=== PATIENT | female | born 1945 | race Caucasian/White ===

== ENCOUNTER 2017-07-24 15:25 | Emergency (ER) | payer MEDICARE, OTHER, SELFPAY ==
[2017-07-24 15:41] VITALS: BP 180/73; PULSE 87; RESP 24; TEMP 36.7; O2SAT 96; BMI 27.4
[2017-07-24 15:45] VITALS: BMI 28.7
--- NOTE | 2017-07-24 15:47 | CT_ITS ---
CT cervical spine wo con CLINICAL INDICATION: Neck pain following injury ITS.REASON: fall ORDERING PHYSICIAN: PATIENT AGE: 72 years COMPARISON: None FINDINGS: Normal alignment. No fracture or dislocation. No lytic or blastic change. Multilevel cervical spondylosis is present. C2-C3: Mild uncovertebral hypertrophy. C3-C4: Uncovertebral hypertrophy with bilateral foraminal narrowing. C4-C5: Degenerative disc disease with Left-sided uncovertebral hypertrophy with left-sided foraminal narrowing. C5-C6: Degenerative disc disease. Lung apices are clear. No prevertebral soft tissue swelling. Fluid-filled upper esophagus nonspecific and may be seen with reflux or distal esophageal obstruction IMPRESSION: 1. Cervical spondylosis. Multilevel degenerative changes. 2. No acute fracture or dislocation. 3. Fluid-filled upper thoracic esophagus
--- NOTE | 2017-07-24 15:48 | XR_ITS ---
XR hand RT min 3V HISTORY: Post may pain ITS.REASON: fall ORDERING PHYSICIAN: Morgan Pham MD PATIENT AGE: 72 years COMPARISON: None FINDINGS: No fracture or dislocation. No lytic or blastic change. There is normal mineralization.. There is mild osteoarthritic change of the second DIP joint. IMPRESSION: 1. No acute fracture. 2. Mild osteoarthritis of the second DIP
--- NOTE | 2017-07-24 16:09 | CT_ITS ---
CT head/brain wo con HISTORY: Headache, pain, right frontal contusion with bruising and abrasion following injury ITS.REASON: FALL ORDERING PHYSICIAN: PATIENT AGE: 72 years COMPARISON: None TECHNIQUE: Axial images obtained without contrast. Brain and bone windows reviewed. FINDINGS: No midline shift, mass effect, intracranial hemorrhage, hydrocephalus, or extra-axial fluid collection is evident. There are involutional changes of age with mild cortical volume loss. The calvarium has an unremarkable appearance. No mastoid effusion. No sinus air-fluid levels.. IMPRESSION: No acute intracranial findings.
--- NOTE | 2017-07-24 17:56 | HMH.EDGENADL ---
ED Disposition Clinical Impression: Contusion Qualifiers: Encounter type: initial encounter Contusion area: hand Laterality: right Qualified Code(s): S60.221A - Contusion of right hand, initial encounter Disposition: Home, Self-Care Condition on Discharge: Good Instructions: DI for Closed Head Injury Additional Instructions: Please apply an ice pack to the affected areas, take Tylenol as needed for pain, follow-up with your family physician if not better. Referrals: Jenniffer Murdock APRN [Primary Care Provider] - Time of Disposition: 17:57 - Critical Care Critical Care Time: No Attestation: On 07/24/17, the high probability of a clinically significant, sudden or life threatening deterioration of the following system(s) required my full and direct attention, intervention and personal management. The time I documented below is in addition to time spent performing reported procedures but includes the following listed in this critical care notation. Medical Decision Making - Medical Records Medical records reviewed: Yes: I reviewed the patient's medical records. Vital Signs: 07/24/17 15:41 07/24/17 18:27 Temperature 98.1 F 98.0 F Temperature Source Oral Oral Pulse Rate 87 Pulse Rate [Right Radial] 87 Respiratory Rate 24 20 Blood Pressure 160/78 Blood Pressure [Right Arm] 180/73 Blood Pressure Mean [Right Arm] 108 Blood Pressure Source Automatic Cuff Blood Pressure Source [Right Arm] Manual Cuff/ Doppler Blood Pressure Position Sitting Blood Pressure Position [Right Arm] Sitting 02 Sat by Pulse Oximetry 96 Oxygen Delivery Method Room Air Room Air Orders (Tests/Meds): ORDERS Category Date Time Status CT head request [CT Request head] Stat Cat Scan 07/24/17 15:46 Taken - Radiology Data #1 Image(s): Forearm Image Reviewed: Yes I reviewed the patient's radiology results Preliminary Findings: Normal/NAD - CT Data CT Scan: Head Time Received: 17:[address] Reviewed: Yes: I have reviewed the patient's CT results Preliminary Findings: Normal/NAD Findings Narrative: CT scan # 2- C spine - negative - Heladio Inquiry Pt receiving controlled substance: No - Reevaluation(s) Time: 17:45 Reevaluation #1: Patient remains medically stable, in no acute distress. Advised patient to alternate Motrin with Tylenol for pain control, follow-up with PCP if not better per discharge instructions. General Adult HPI - General Chief complaint: Head Injury Stated complaint: AO 07/24/16 Fell, left hip pain, CALVIN Mode of Arrival: Ambulatory Limitations: No Limitations - History of Present Illness HPI narrative: This is a 72-year-old lady that fell after slipping on ice injuring her right hand, and hitting her head. She was briefly days, complaints with neck pain as well. Accident took place 2-3 hours prior to arrival to the emergency room. Patient denies any nausea, vomiting, blurred vision, seizure-like activity. MD complaint: Head and neck pain. Onset (ago): hour(s) (2) Location: head Radiation: non-radiation Severity: moderate Severity scale (1-10): 2 Quality: aching Consistency: intermittent Relieving factors: none Exacerbating factors: movement Associated symptoms: headaches Treatments prior to arrival: none - Related Data Home Medications Medication Instructions Recorded Confirmed Aspirin [Aspirin 81mg EC Tab] 81 mg PO DAILY 07/24/17 07/24/17 Allergies Allergy/AdvReac Type Severity Reaction Status Date / Time propoxyphene [From DARVON] Allergy Unknown Verified 07/24/17 15:57 Sulfa (Sulfonamide Allergy Unknown Verified 07/24/17 15:57 Antibiotics) [SULFA (SULFONAMIDE ANTIBIOTICS)] [facility] History I have reviewed the patient's past medical history: Yes Medical History: Reports:: Diabetes Mellitus Type 2 Laterality Cases: Left: Mastectomy - *Social History Alcohol Intake: never - Psychiatric History Expresses thoughts of harmin
[2017-07-24 18:27] VITALS: BP 160/78; PULSE 87; RESP 20; TEMP 36.7; O2SAT 97
== END 2017-07-24 18:28 | disposition home or self-care (01) ==
LOC: UTC 16:32 → ER 16:34
PROVIDERS: Emergency Provider Emergency Medicine; Family Provider Internal Medicine Adolescent Medicine; PCP Nurse Practitioner Family
DX: S60.221A Contusion of right hand, initial encounter (principal); S09.90XA Unspecified injury of head, initial encounter; W00.0XXA Fall on same level due to ice and snow, initial encounter
CPT/HCPCS: 70450; 72125; 73130; 99291

== ENCOUNTER 2017-08-03 14:34 | Emergency (ER) | payer MEDICARE, OTHER, SELFPAY ==
[2017-08-03 16:37] VITALS: BP 107/47; PULSE 60; RESP 18; TEMP 36.3; O2SAT 99; BMI 27.4
[2017-08-03 16:44] LABS: Apearance,Urine Clear (Clear); Color,Urine Yellow (Yellow); Glucose,Urine (UA) Negative (Negative); Ketones,Urine Negative (Negative); PH,Urine 5.5 (5.0-8.5); Protein,Urine Negative (Negative); Specific Gravity, Urine 1.015 (1.005-1.030)
[2017-08-03 16:45] LABS: Bilirubin,Urine Negative (Negative); Blood, Urine Negative (Negative); UTC Leukocyte Esterase,Urine 1+ (Negative); UTC Nitrate,Urine Negative (Negative); Urobilinogen,Urine 0.2 EU/dl (0.2)
--- NOTE | 2017-08-03 17:25 | HMH.EDUTC ---
[facility] Clinical Impression: Dysuria Disposition: Home, Self-Care Condition on Discharge: Good Instructions: DI for Dysuria -- Adult Additional Instructions: * increase fluids, Water and NOT soda or tea * No antibiotic today. Will wait for culture results but if you get worse while waiting, be sure to follow up. * pyridium as needed. Remember this will turn your urine ORANGE, this is normal but will stain whatever it gets on. this includes tears and contacts. Try not to wear contacts due to risk of staining orange. * call [phone] on Sunday to see if results ready. if not ready, call Sunday. If bacteria, we will start antibiotic Prescriptions: Phenazopyridine HCl [Pyridium 200mg Tablet] 200 mg PO TID PRN #9 tab PRN Reason: Dysuria Referrals: Jenniffer Murdock APRN [Primary Care Provider] - (This weekend return to [facility] for new or worsening symptoms. Call Sunday for urine culture results but if not ready, call Sunday. You will need antibiotic if bacteria present) Time of Disposition: 17:37 Medical Decision Making Vital Signs: 08/03/17 16:37 Temperature 97.4 F L Temperature Source Temporal Artery Scan Pulse Rate [Right Brachial] 60 Respiratory Rate 18 Blood Pressure [Right Arm] 107/47 Blood Pressure Mean [Right Arm] 67 Blood Pressure Source [Right Arm] Automatic Cuff Blood Pressure Position [Right Arm] Sitting 02 Sat by Pulse Oximetry 99 Oxygen Delivery Method Room Air - Lab Data Lab results reviewed: Yes: I reviewed the patient's lab results. Lab Results 08/03/17 16:42: Urine Color Yellow, Urine Appearance Clear, Urine pH 5.5, Ur Specific [place] 1.015, Urine Protein Negative, Urine Glucose (UA) Negative, Urine Ketones Negative, Urine Blood Negative, Urine Nitrate Negative, Urine Bilirubin Negative, Urine Urobilinogen 0.2, Ur Leukocyte Esterase 1+ A Orders (Tests/Meds): ORDERS Category Date Time Status Urine Culture Stat Micro 08/03/17 17:33 Ordered - Heladio Inquiry Pt receiving controlled substance: No [facility] [place] - General Stated complaint: vaginal burning Time Seen by Provider: 08/03/17 17:20 Mode of Arrival: Ambulatory Source of Information: Patient Limitations: No Limitations Description of Symptoms (Recalled from Triage Doc. by RN): BURNING WITH URINATION HEENT Symptoms (Recalled from RN notes): No Resp Symptoms (Recalled from RN notes): No Skin Symptoms (Recalled from RN notes): No MS Symptoms (Recalled from RN notes): No Functional Status (Recalled from RN notes): N/A - History of Present Illness Provider Complaint: c/o burning with urination today. Hx of UTIs but last one over a year ago. No treatment before arrival. Reports trying to see PCP but no openings today. - Related Data Home Medications Medication Instructions Recorded Confirmed Aspirin [Aspirin 81mg EC Tab] 81 mg PO DAILY 07/24/17 07/24/17 Previous Rx's Medication Instructions Recorded Phenazopyridine HCl [Pyridium 200 mg PO TID PRN #9 tab 08/03/17 200mg Tablet] Allergies Allergy/AdvReac Type Severity Reaction Status Date / Time propoxyphene [From DARVON] Allergy Unknown Verified 07/24/17 15:57 Sulfa (Sulfonamide Allergy Unknown Verified 07/24/17 15:57 Antibiotics) [SULFA (SULFONAMIDE ANTIBIOTICS)] - Worker's Comp Is this a Worker's Comp case?: No [facility] History I have reviewed the patient's past medical history: Yes Medical History: Reports:: Depression, Diabetes Mellitus Type 2, Gastroesophageal Reflux Disease(GERD), Hyperlipidemia, Hypertension Denies:: Cancer, Diabetes Mellitus Type 1, MRSA Other Medical History: Reports: Other (allergies) Laterality Cases: Left: Mastectomy Amputation: No - *Social History Smoking Status: Never smoker Alcohol Intake: never - Psychiatric History Expresses thoughts of harming self/others: None Suicide Plan Description: No Plan ROS Obtained: Yes Systems reviewed as appropriate & no additional complaints
--- NOTE | 2017-08-03 17:33 | ED_ITS ---
[facility] [place] Clinical Impression: Dysuria Disposition: Home, Self-Care Condition on Discharge: Good Instructions: DI for Dysuria -- Adult Additional Instructions: * increase fluids, Water and NOT soda or tea * No antibiotic today. Will wait for culture results but if you get worse while waiting, be sure to follow up. * pyridium as needed. Remember this will turn your urine ORANGE, this is normal but will stain whatever it gets on. this includes tears and contacts. Try not to wear contacts due to risk of staining orange. * call [phone] on Sunday to see if results ready. if not ready, call Sunday. If bacteria, we will start antibiotic Prescriptions: Phenazopyridine HCl [Pyridium 200mg Tablet] 200 mg PO TID PRN #9 tab PRN Reason: Dysuria Referrals: Jenniffer Murdock APRN [Primary Care Provider] - (This weekend return to [facility] for new or worsening symptoms. Call Sunday for urine culture results but if not ready, call Sunday. You will need antibiotic if bacteria present) Time of Disposition: 17:37 Medical Decision Making Vital Signs: 08/03/17 16:37 Temperature 97.4 F L Temperature Source Temporal Artery Scan Pulse Rate [Right Brachial] 60 Respiratory Rate 18 Blood Pressure [Right Arm] 107/47 Blood Pressure Mean [Right Arm] 67 Blood Pressure Source [Right Arm] Automatic Cuff Blood Pressure Position [Right Arm] Sitting 02 Sat by Pulse Oximetry 99 Oxygen Delivery Method Room Air - Lab Data Lab results reviewed: Yes: I reviewed the patient's lab results. Lab Results 08/03/17 16:42: Urine Color Yellow, Urine Appearance Clear, Urine pH 5.5, Ur Specific [place] 1.015, Urine Protein Negative, Urine Glucose (UA) Negative, Urine Ketones Negative, Urine Blood Negative, Urine Nitrate Negative, Urine Bilirubin Negative, Urine Urobilinogen 0.2, Ur Leukocyte Esterase 1+ A Orders (Tests/Meds): ORDERS Category Date Time Status Urine Culture Stat Micro 08/03/17 17:33 Ordered - Heladio Inquiry Pt receiving controlled substance: No [facility] [place] - General Stated complaint: vaginal burning Time Seen by Provider: 08/03/17 17:20 Mode of Arrival: Ambulatory Source of Information: Patient Limitations: No Limitations Description of Symptoms (Recalled from Triage Doc. by RN): BURNING WITH URINATION HEENT Symptoms (Recalled from RN notes): No Resp Symptoms (Recalled from RN notes): No Skin Symptoms (Recalled from RN notes): No MS Symptoms (Recalled from RN notes): No Functional Status (Recalled from RN notes): N/A - History of Present Illness Provider Complaint: c/o burning with urination today. Hx of UTIs but last one over a year ago. No treatment before arrival. Reports trying to see PCP but no openings today. - Related Data Home Medications Medication Instructions Recorded Confirmed Aspirin [Aspirin 81mg EC Tab] 81 mg PO DAILY 07/24/17 07/24/17 Previous Rx's Medication Instructions Recorded Phenazopyridine HCl [Pyridium 200 mg PO TID PRN #9 tab 08/03/17 200mg Tablet] Allergies Allergy/AdvReac Type Severity Reaction Status Date / Time propoxyphene [From DARVON] Allergy Unknown Verified 07/24/17 15:57 Sulfa (Sulfonamide Allergy Unknown Verified 07/24/17 15:57 Antibiotics) [SULFA (SULFONAMIDE ANTIBIOTICS)] - W
[2017-08-03 17:49] VITALS: BP 107/47; PULSE 60; RESP 18; TEMP 36.3; O2SAT 99
== END 2017-08-03 17:50 | disposition home or self-care (01) ==
PROVIDERS: Emergency Provider Nurse Practitioner Family; Family Provider Internal Medicine Adolescent Medicine; PCP Nurse Practitioner Family
DX: R30.0 Dysuria (principal); F32.9 Major depressive disorder, single episode, unspecified; E11.9 Type 2 diabetes mellitus without complications; E78.5 Hyperlipidemia, unspecified; I10 Essential (primary) hypertension; Z88.2 Allergy status to sulfonamides; Z79.82 Long term (current) use of aspirin
CPT/HCPCS: G0463; 81003; 87086; 87088; 87186; 99202

== ENCOUNTER → 2017-11-07 12:02 | Outpatient (CLI) | payer MEDICARE, OTHER, SELFPAY ==
[2017-11-07 12:24] LABS: Blood Urea Nitrogen 16 mg/dL (7-18); Creatinine,Serum 0.74 mg/dL (0.55-1.02); Estimated Glomerular Filt Rate 77 ml/min (>60); GFR (African American) 93 ML/MIN (>60)
--- NOTE | 2017-11-07 13:13 | CT_ITS ---
CT abdomen pelvis w con CLINICAL INDICATION: Persistent left flank pain ITS.REASON: LT FLANK PAIN ORDERING PHYSICIAN: Don Conde MD PATIENT AGE: 72 years COMPARISON: 10/22/2017 TECHNIQUE: Axial images obtained with sagittal and coronal reformats. All CT scans at the facility use one or more dose reduction, viz: automated exposure control; ma/kV adjustment per patient size (including targeted exams where dose is matched to indication; i.e. head); or iterative reconstruction technique. PROCEDURE: Oral Contrast: None IV Contrast: 75 mL's of Isovue-370. FINDINGS: No acute finding in the lower chest. Left-sided breast prosthesis is present. There is a subtle isodensity in the central aspect of the hepatic dome measuring 5 mm too small to categorize. There is an additional 12 mm isodensity in the central aspect of the liver which may be due to small cyst. Remaining liver has an unremarkable appearance. No radio opaque gallstones. The spleen and adrenal glands have an unremarkable.. Isodense lesion once again noted involving the uncinate process of the pancreas at 14 mm not significant change. No renal or ureteral calculi are evident. There is a 1.5 cm isodensity in the upper pole the right kidney consistent with a small cyst. No hydronephrosis. No ureteral dilatation. The urinary bladder has an unremarkable appearance. There are postsurgical changes of the cecum with ileocecal anastomosis which is patent. No intestinal obstruction or free air. There has been prior hysterectomy. No pelvic mass, inflammatory change, or abnormal fluid collection evident. There is moderate wedging of the L1 vertebral body is chronic with kyphosis at the thoracolumbar junction. No aneurysm. IMPRESSION: 1. No acute finding. No ureteral or renal calculi. No hydronephrosis or ureteral dilatation. 2. No change isodense lesion of the pancreatic head as previously described. Pancreatic cyst, intraductal papillary mucinous neoplasm, serous cystadenoma or simple pancreatic cyst considered in the differential diagnosis
== END ==
PROVIDERS: Visit Provider Internal Medicine Adolescent Medicine
DX: R10.9 Unspecified abdominal pain (principal)
CPT/HCPCS: 36415; 74177; 82565; 84520; Q9967

== ENCOUNTER → 2018-02-01 11:45 | Outpatient (CLI) | payer MEDICARE, OTHER, SELFPAY ==
--- NOTE | 2018-02-01 11:48 | NVE_ITS ---
Venous Exam Indications: 782.3 Edema. IMPRESSIONS 1. There is no evidence of significant Reflux. 2. No evidence of deep or superficial vein thrombosis involving the left lower extremity Left lower extremity venous duplex evaluation. Doppler flow study including spectral analysis, color and donato scale imaging. Location: Vascular laboratory. Patient status: Outpatient. CRITICAL FINDINGS - Reported to: CARTER - Read back and verified. - 02/01/18 - 1210 - NONE Tables: Venous flow and imaging: + +-------+ + Location Overall Flow properties + +-------+ + Left common femoral Patent Normal phasicity; spontaneous; normal augmentation; compressible + +-------+ + Left saphenofemoral junction Patent Compressible + +-------+ + Left profunda femoral Patent Compressible + +-------+ + Left femoral Patent Normal phasicity; spontaneous; normal augmentation; compressible + +-------+ + Left greater saphenous Patent Normal phasicity; spontaneous; normal augmentation; compressible + +-------+ + Left popliteal Patent Normal phasicity; spontaneous; normal augmentation; compressible + +-------+ + Left posterior tibial Patent Compressible + +-------+ + Left peroneal Patent Compressible + +-------+ + Left gastrocnemius Patent Compressible + +-------+ + Left soleal Patent Compressible + +-------+ + (Report amended ) Electronically signed by: Hamilton Lazcano [id number]
== END ==
PROVIDERS: PCP Internal Medicine Adolescent Medicine; Visit Provider Internal Medicine Adolescent Medicine
DX: M79.89 Other specified soft tissue disorders (principal)
CPT/HCPCS: 93971

== ENCOUNTER 2019-02-02 17:04 | Observation (INO) ==
[2019-02-02 17:18] LABS: Microscopic, Urine URINE MICROSCOPIC (MICROSCOPIC)
--- NOTE | 2019-02-02 17:27 | Emergency Department Note ---
ED Disposition Clinical Impression: Agitation Dementia Qualifiers: Dementia type: unspecified type Dementia behavioral disturbance: with behavioral disturbance Qualified Code(s): F03.91 - Unspecified dementia with behavioral disturbance Disposition: Admitted as Observation Condition on Discharge: Fair - Critical Care Critical Care Time: No Attestation: On 02/02/19, the high probability of a clinically significant, sudden or life threatening deterioration of the following system(s) required my full and direct attention, intervention and personal management. The time I documented below is in addition to time spent performing reported procedures but includes the following listed in this critical care notation. Medical Decision Making - Heladio Inquiry Pt receiving controlled substance: No Vital Signs: 02/02/19 17:15 02/02/19 17:35 02/02/19 17:54 Temperature 99.5 F Temperature Source Oral Pulse Rate [Right Radial] 86 75 Respiratory Rate 18 17 Blood Pressure [Right Arm] 208/98 H 208/91 H 195/86 H Blood Pressure Mean [Right Arm] 134 130 122 Blood Pressure Source [Right Arm] Automatic Cuff Automatic Cuff Automatic Cuff Blood Pressure Position [Right Arm] Sitting Sitting Sitting 02 Sat by Pulse Oximetry 97 97 Oxygen Delivery Method Room Air Room Air 02/02/19 18:30 02/02/19 19:00 02/02/19 19:45 Temperature Temperature Source Pulse Rate [Right Radial] 71 80 82 Respiratory Rate 17 18 20 Blood Pressure [Right Arm] 189/89 H 205/93 H 185/90 H Blood Pressure Mean [Right Arm] 122 130 121 Blood Pressure Source [Right Arm] Automatic Cuff Automatic Cuff Blood Pressure Position [Right Arm] Sitting Sitting Sitting 02 Sat by Pulse Oximetry 96 97 96 Oxygen Delivery Method Room Air Room Air Room Air - Lab Data Lab Results 02/02/19 17:12: Urine Color Yellow, Urine Appearance Clear, Urine pH 7.0, Ur Specific [place] <= 1.005, Urine Protein Negative, Urine Glucose (UA) Negative, Urine Ketones Negative, Urine Blood Negative, Urine Nitrate Negative, Urine Bilirubin Negative, Urine Urobilinogen 0.2, Ur Leukocyte Esterase Negative, Urine WBC Occasional, Amorphous Sediment Trace 02/02/19 18:02: WBC 5.6, RBC 4.06 L, Hgb 10.7 L, Hct 34.8 L, MCV 85.8, MCH 26.5 L, MCHC 30.8 L, RDW 15.3, Plt Count 251, MPV 7.9, Neut % (Auto) 64.9, Lymph % (Auto) 27.1, [place] % (Auto) 5.6, Eos % (Auto) 1.9, Baso % (Auto) 0.5, Neut # (Auto) 3.6, Lymph # (Auto) 1.5, [place] # (Auto) 0.3, Eos # (Auto) 0.1, Baso # (Auto) 0.0 02/02/19 18:02: Sodium 140, Potassium 4.0, Chloride 103, Carbon Dioxide 31, Anion Gap 10.0, BUN 17, Creatinine 0.76, Estimated Creat Clear 44, Estimated GFR 74, Est GFR ( Amer) 90, Glucose 75, Calcium 9.2, Total Bilirubin 0.4, AST 14 L, ALT 29, Alkaline Phosphatase 80, Troponin I < 0.02, Total Protein 7.5, [place] umin 3.8, Globulin 3.7 H, Albumin/Globulin Ratio 1.0 L Result diagrams: 02/02/19 18:02 02/02/19 18:02 Orders (Tests/Meds): ED MEDICATIONS Generic Name Dose Route Start Last Admin Trade Name Freq PRN Reason Stop Dose Admin Sodium Chloride 2 ml 02/02/19 19:08 Saline Flush 10ml Syringe IV 03/04/19 19:07 NEEDED PRN to Dilute Lorazepam inj Sodium Chloride 10 ml 02/02/19 19:08 Saline Flush 10ml Syringe IV 03/04/19 19:07 NEEDED PRN Maintain IV Site Discontinued Medications Generic Name Dose Route Start Last Admin Trade Name Freq PRN Reason Stop Dose Admin Carvedilol 12.5 mg 02/02/19 20:16 Coreg 12.5mg Tablet PO 02/02/19 20:17 ONCE ONE Lorazepam 1 mg 02/02/19 19:08 02/02/19 19:08 Ativan 2mg/Ml Vial IV 02/02/19 19:09 1 mg ONCE ONE Administration ORDERS Category Date Time Status XR chest portable Stat Exams 02/02/19 17:40 Taken - Radiology Data #1 Image(s): Chest Image Reviewed: Yes I reviewed the patient's radiology image Granulomatous disease. No acute process. - ECG Data Tracing #1 EKG interpreted by Garrison Peck MD: Rhythm: sinus Rate: 72 [place]: Left Ectopy: none Conduction: Left bundle branch block ST Segment Changes: Old anterior septal and lateral changes T Wave Changes: Old anterior septal and lateral changes Q Waves: Septal No evidence of acute ischemia or injury - Physician Consults Physician Consulted: Elton Time: 19:50 Reason -: Admission Comment/Response: Agrees to admit the patient to the hospital. We discussed the patient's clinical information, including history, exam, laboratory and rad iology results and ED course. Per hospital procedure, I will write temporary bridge inpatient orders on the patient. Specific orders requested by the admitting physician: Admit to observation and he will pursue placement in a geriatric psychiatric facility tomorrow. Ativan 1 mg IV every 6 hours as needed for agitation. Give a dose of carvedilol, her usual dosage, tonight. General Adult HPI - General Stated complaint: AMS Time Seen by Provider: 02/02/19 17:30 - History of Present Illness HPI narrative: History obtained from patient and from the emergency department nurse who is spoken with the patient's daughter. Daughter was not in the room at the time I examined the patient. The patient says she feels fine, she has no complaints. She says "my daughter is a pain in the ass, she tries to control me". Nurse reports the daughter says the patient has dementia. Has had some episodes of combativeness since her a year ago. Still lives alone, still drives. Has increased confusion for the past couple of weeks. Last week was knocking on neighbors doors and police had to be called. Today she had increased confusion and combativeness and therefore was brought to the emergency room. She is on Aricept. Daughter states that she was "terrible" with her dementia for about 6 months after her 1 year ago, but then improved for the past 4 to 5 months. However in the past 2 weeks is worsening again. Paranoid, accusing neighbors of stealing her stuff. Has had to have the police called on her twice by neighbors in the past couple of weeks. - Related Data Home Medications Medication Instructions Recorded Confirmed Aspirin [Aspirin 81mg EC Tab] 81 mg PO DAILY 07/24/17 02/02/19 Atorvastatin Calcium [Atorvastatin 80 mg PO DAILY 10/21/17 02/02/19 80mg Tab] Donepezil HCl [Aricept 10mg 10 mg PO DAILY 10/21/17 02/02/19 tablet] Escitalopram Oxalate [Lexapro] 10 mg PO DAILY 10/21/17 02/02/19 Memantine HCl 10 mg PO DAILY 10/21/17 02/02/19 Metformin HCl 500 mg PO DAILY 10/21/17 02/02/19 Primidone [Mysoline 50mg tablet] 50 mg PO DAILY 10/21/17 02/02/19 diazePAM [Valium 2mg tablet] 2 mg PO DAILYP PRN 10/21/17 02/02/19 carvedilol 12.5 mg tablet 12.5 mg PO DAILY tab 08/15/18 02/02/19 Allergies Allergy/AdvReac Type Severity Reaction Status Date / Time propoxyphene [From DARVON] Allergy Unknown Verified 01/30/19 09:49 Sulfa (Sulfonamide Allergy Unknown Verified 01/30/19 09:49 Antibiotics) [SULFA (SULFONAMIDE ANTIBIOTICS)] [facility] History - Hepatitis A Screen Attestation statement:: This patient has been screened for Hepatitis A risk factors. I have reviewed the patient's past medical history: Yes Medical History: Reports:: Cancer, Depression, Diabetes Mellitus Type 1, Gastroesophageal Reflux Disease(GERD), Hyperlipidemia, Hypertension Denies:: Diabetes Mellitus Type 2, MRSA Other Medical History: Reports: Other Laterality Cases: Other Surgeries: Yes: Colon Resection Amputation: No Fractures: No - Social History Smoking Status: Never smoker Alcohol Intake: never Alcohol Intake Frequency:: other Occupational Status: retired - Psychiatric History Pschychiatric History:: Reports:: Depression Family Hx:: Stroke, Heart Attack Comment: Mom- Seizures ROS Obtained: Yes All systems reviewed & no additional complaints - Constitutional Constitutional: Denies fever(s) - Eyes Eyes: Denies change in vision - ENT Ears, Nose, Mouth, and Throat: Denies nasal discharge, Denies sore throat - Cardiovascular Cardiovascular: Denies chest pain - Respiratory Respiratory: No cough, No dyspnea - Gastrointestinal Gastrointestingal: Denies: abdominal pain, diarrhea, vomiting - Genitourinary Female Genitourinary: Denies difficulty voiding - Neurologic Neurologic: Reports as per HPI, Denies headache(s), Denies numbness, Denies weakness Physical Exam - General General appearance: alert, in no apparent distress - Head Head exam: atraumatic, normocephalic - Eye Eye exam: Present: normal appearance, PERRL, EOMI - ENT ENT exam: Present: mucous membranes moist - Neck Neck exam: Present: normal inspection, full ROM, trachea midline. Absent: meningismus - Chest Chest inspection: Present: normal inspection, symmetric chest wall rise - Respiratory Respiratory exam: Present: normal lung sounds bilaterally. Absent: respiratory distress - Cardiovascular Cardiovascular exam: Present: regular rate, normal rhythm, normal heart sounds - Abdominal Exam Abdominal exam: Present: soft, normal bowel sounds. Absent: distention, tenderness - Extremities Exam Extremities exam: Present: normal inspection - Neurological Exam Neurological exam: Present: alert, oriented X3, CN II-XII intact. Absent: motor sensory deficit - Psychiatric Psychiatric exam: Present: normal affect, normal mood - Skin Skin exam: Present: warm, dry
[2019-02-02 17:32] LABS: Appearance,Urine CLEAR (Clear); Bilirubin,Urine Negative (Negative); Blood, Urine Negative (Negative); Color,Urine YELLOW (Yellow); Glucose,Urine (UA) Negative (Negative); Ketones,Urine Negative (Negative); Leukocyte Esterase,Urine Negative (Negative); Protein,Urine Negative (Negative); Specific Gravity, Urine <= 1.005 (1.005-1.030); Urobilinogen,Urine 0.2 EU/dl (0.2)
[2019-02-02 17:37] LABS: Amorphous Sediment,Urine Trace /lpf; WBC,Urine Occasional #/hpf (0-3)
[2019-02-02 18:15] LABS: Basophils % 0.5 % (0.1-2.0); Eosinophils # 0.1 K/mm3 (0.0-0.4); Eosinophils % 1.9 % (0.1-12.0); Hematocrit 34.8 % (37.0-47.0); Hemoglobin 10.7 g/dL (12.2-16.2); Lymphocytes # 1.5 K/mm3 (0.7-4.5); Lymphocytes % 27.1 % (10-50); Mean Corpuscular HGB Conc 30.8 g/dL (31.8-35.4); Mean Corpuscular Volume 85.8 fl (81-99); Mean Platelet Volume 7.9 fl (7.4-10.4); Monocytes # 0.3 K/mm3 (0.1-1.0); Monocytes % 5.6 % (1.7-9.3); Neutrophils # 3.6 K/mm3 (1.8-7.8); Neutrophils % 64.9 % (37.0-80.0); Platelet Count 251 K/mm3 (142-424); Red Blood Count 4.06 M/mm3 (4.20-5.40); Red Cell Distribution Width 15.3 % (11.5-17.5); White Blood Count 5.6 K/mm3 (4.8-10.8)
[2019-02-02 18:31] LABS: Alanine Aminotransferase 29 U/L (12-78); Albumin Level 3.8 gm/dL (3.4-5.0); Alkaline Phosphatase 80 U/L (46-116); Aspartate Amino Transferase 14 U/L (15-37); Bilirubin,Total 0.4 mg/dL (0.2-1.0); Blood Urea Nitrogen 17 mg/dL (7-18); Calcium 9.2 mg/dL (8.5-10.1); Carbon Dioxide 31 mmol/L (21.0-32.0); Chloride 103 mmol/L (98-107); Globulin 3.7 gm/dl (1.3-3.2); Glucose 75 mg/dL (74-106); Sodium 140 mmol/L (136-145); Total Protein,Serum 7.5 gm/dL (6.4-8.2)
--- NOTE | 2019-02-03 09:34 | Pharmacy Consult Notes ---
[facility] Pharmacy VTE Monitoring - Patient Demographics Admission date: 02/02/19 Report Date: 02/03/19 Time: 09:34 Allergies/Adverse Reactions: Patient Allergies propoxyphene [From DARVON] Allergy (Unknown, Verified 01/30/19 09:49) Sulfa (Sulfonamide Antibiotics) [SULFA (SULFONAMIDE ANTIBIOTICS)] Allergy (Unknown, Verified 01/30/19 09:49) Height: 1.57 m Weight: 56.359 kg Patient Problems: Current Active Problems Agitation (Acute) Dementia (Acute) - VTE Risk Labs: VTE Related Lab Results Hgb 10.7 g/dL (12.2-16.2) L 02/02/19 18:02 Hct 34.8 % (37.0-47.0) L 02/02/19 18:02 Plt Count 251 K/mm3 (142-424) 02/02/19 18:02 BUN 17 mg/dL (7-18) 02/02/19 18:02 Creatinine 0.76 mg/dL (0.55-1.02) 02/02/19 18:02 Estimated Creat Clear 44 mL/min (50-200) 02/02/19 18:02 VTE Score: 4 VTE Risk Level: Low Risk - Prophylaxis VTE Prophylaxis Ordered?: Yes Types of VTE Prophylaxis: TEDS Knee High Location of Applied Device: Bilateral Lower Extremeties - VTE Diagnosis Confirmed Treatment or plan recommended: Continue Current Treatment
--- NOTE | 2019-02-03 13:47 | History & Physical Report ---
*Admission Date: 02/02/19 *Chief complaint: Disorientation/agitation *History of present illness: 73-year-old white female, with long history of anxiety disorder and hypertension who was brought to the emergency department on the day of admission by her daughter. Her daughter, as noted in the ER report, reported that the patient was increasingly agitated, and was exhibiting violent behaviors and striking and hitting the daughter. In the emergency department patient was agitated, was called with intravenous of Ativan, but was also noted to have significantly elevated blood pressure. Otherwise laboratory studies and imaging studies of the head were unremarkable. She was given her regular dose of her home blood pressure [id number] resulted in normalization of her blood pressure. She became somewhat calm her, and accused her daughter of "trying to run my life." She was admitted for further observation. [facility] History I have reviewed the patient's past medical history: Yes Medical History: Reports:: Cancer (breast CA), Depression, Diabetes Mellitus Type 1, Diabetes Mellitus Type 2, Gastroesophageal Reflux Disease(GERD), Hyperlipidemia, Hypertension Denies:: MRSA *Have you ever received a pneumonia vaccine?: No *Have you received a flu vaccine this season?: Yes Other Medical History: Reports: Other Laterality Cases: Left: Mastectomy Other Surgeries: Yes: Colon Resection, Hysterectomy-Total Amputation: No Fractures: No - *Social History Educational Level: Completed High School Smoking Status: Never smoker Alcohol Intake: never Alcohol Intake Frequency:: other *Occupational Status:: retired *Travel in the last 8 weeks: None - Psychiatric History Expresses thoughts of harming self/others: None Suicide Plan Description: No Plan Pschychiatric History:: Reports:: Depression Family Hx:: Cancer, Stroke Review of Systems - Review of Systems Review of systems:: pertinent systems reviewed and negative unless documented below - Constitutional Denies anorexia, Denies body ache(s) - Eyes Denies blind spots, Denies blurry vision - ENT Denies abnormal hearing - *Cardiovascular Denies chest pain, Denies chest pain at rest, Denies shortness of breath, Denies irregular heart rhythm - *Respiratory Denies change in phlegm color, Denies chest congestion, Denies cough - *Gastrointestinal Denies abdominal pain, Denies change in stools - *Musculoskeletal Denies abnormal walking, Denies joint swelling - Integumentary/Breasts Denies acne, Denies hair loss - *Neurologic Denies headache(s), Denies numbness, Denies weakness - Psychiatric Reports abnormal sleep pattern, Reports behavioral changes, Reports thoughts of hurting/killing others - Endocrine Denies cold intolerance - Hematologic/Lymphatic Denies easy bleeding - Allergic/Immunologic Denies GI upset with certain foods Meds Home Medications Medication Instructions Recorded Confirmed Type Aspirin [Aspirin 81mg EC Tab] 81 mg PO DAILY 07/24/17 02/02/19 History Atorvastatin Calcium [Atorvastatin 80 mg PO DAILY 10/21/17 02/02/19 History 80mg Tab] Donepezil HCl [Aricept 10mg 10 mg PO HS 10/21/17 02/03/19 History tablet] Escitalopram Oxalate [Lexapro] 10 mg PO DAILY 10/21/17 02/02/19 History Memantine HCl 10 mg PO BID 10/21/17 02/03/19 History Primidone [Mysoline 50mg tablet] 50 mg PO BID 10/21/17 02/03/19 History diazePAM [Valium 2mg tablet] 2 mg PO BIDP PRN 10/21/17 02/03/19 History Alendronate Sodium 70 mg PO WEEKLY 02/03/19 02/03/19 History Carvedilol [Carvedilol 25mg Tab] 25 mg PO BID 02/03/19 02/03/19 History Metformin HCl 500 mg PO DAILY 02/03/19 02/03/19 History Allergies Allergy/AdvReac Type Severity Reaction Status Date / Time propoxyphene [From DARVON] Allergy Unknown Verified 01/30/19 09:49 Sulfa (Sulfonamide Allergy Unknown Verified 01/30/19 09:49 Antibiotics) [SULFA (SULFONAMIDE ANTIBIOTICS)] Exam Vital signs and Labs for Last 24 Hours: Temp Pulse Resp BP Pulse Ox 97.7 F 65 18 157/90 H 96 02/03/19 08:00 02/03/19 08:00 02/03/19 08:00 02/03/19 08:00 02/03/19 08:00 Laboratory Results - last 24 hr 02/02/19 17:12: Urine Color Yellow, Urine Appearance Clear, Urine pH 7.0, Ur Specific [place] <= 1.005, Urine Protein Negative, Urine Glucose (UA) Negative, Urine Ketones Negative, Urine Blood Negative, Urine Nitrate Negative, Urine Bilirubin Negative, Urine Urobilinogen 0.2, Ur Leukocyte Esterase Negative, Urine WBC Occasional, Amorphous Sediment Trace 02/02/19 18:02: WBC 5.6, RBC 4.06 L, Hgb 10.7 L, Hct 34.8 L, MCV 85.8, MCH 26.5 L, MCHC 30.8 L, RDW 15.3, Plt Count 251, MPV 7.9, Neut % (Auto) 64.9, Lymph % (Auto) 27.1, [place] % (Auto) 5.6, Eos % (Auto) 1.9, Baso % (Auto) 0.5, Neut # (Auto) 3.6, Lymph # (Auto) 1.5, [place] # (Auto) 0.3, Eos # (Auto) 0.1, Baso # (Auto) 0.0 02/02/19 18:02: Sodium 140, Potassium 4.0, Chloride 103, Carbon Dioxide 31, Anion Gap 10.0, BUN 17, Creatinine 0.76, Estimated Creat Clear 44, Estimated GFR 74, Est GFR ( Amer) 90, Glucose 75, Calcium 9.2, Total Bilirubin 0.4, AST 14 L, ALT 29, Alkaline Phosphatase 80, Troponin I < 0.02, Total Protein 7.5, Albumin 3.8, Globulin 3.7 H, Albumin/Globulin Ratio 1.0 L 02/02/19 20:53: POC Glucose 100 02/03/19 05:46: POC Glucose 120 H 02/03/19 11:13: POC Glucose 104 I & O for Last 24 hours: Intake & Output 02/01/19 02/02/19 02/03/19 02/04/19 11:59 11:59 11:59 11:59 Intake Total 835 / 835 Balance 835 / 835 Weight 124 lb 4 oz Narrative: When I examined patient the day after admission she had normal vital signs. She was alert, oriented x2, uncertain about the year or the date. She was very angry at her daughter and became extremely agitated when the subject of her daughter was brought up. She compares her daughter unfavorably to a daughter that several years ago who was "the best daughter anyone could have" as opposed to her daughter who brought her to the hospital who is "a bully and trying to run my life and does not know what she is talking about." Cardiopulmonary assessment unremarkable. No murmurs. Lungs clear. Oropharynx clear. No JVD. No peripheral edema or clubbing. Patient follows commands intermittently when she is not preoccupied with her dysfunctional relationship with her daughter. Assessment and Plan (1) Hypertension, essential Current visit: Yes Status: Acute Category: Medical Code(s): I10 - Essential (primary) hypertension Improved after the reinitiation of home blood pressure medication. I think the elevated blood pressure on presentation was a marker for medication noncompliance. (2) Agitation Current visit: Yes Status: Acute Category: Medical Code(s): R45.1 - Restlessness and agitation Possibly not taking her home diazepam/memantine. Better with Ativan. However given her worsening mental status and propensity for violent behavior I think she needs to be evaluated for geriatric psych admission (3) Dementia Current visit: Yes Status: Acute Qualifiers: Dementia type: unspecified type Dementia behavioral disturbance: with behavioral disturbance Qualified Code(s): F03.91 - Unspecified dementia with behavioral disturbance Category: Medical Code(s): F03.90 - Unspecified dementia without behavioral disturbance
--- NOTE | 2019-02-03 16:50 | Discharge Summary ---
General - General Admission date:: 02/02/19 Discharge date: 02/03/19 HPI HPI: 73-year-old white female, with long history of anxiety disorder and hypertension who was brought to the emergency department on the day of admission by her daughter. Her daughter, as noted in the ER report, reported that the patient was increasingly agitated, and was exhibiting violent behaviors and striking and hitting the daughter. In the emergency department patient was agitated, was called with intravenous of Ativan, but was also noted to have significantly elevated blood pressure. Otherwise laboratory studies and imaging studies of the head were unremarkable. She was given her regular dose of her home blood pressure [id number] resulted in normalization of her blood pressure. She became somewhat calm her, and accused her daughter of "trying to run my life." She was admitted for further observation. Hospital Course Hospital Course: Patient was admitted to the hospital and as noted in history of present illness, carvedilol was restarted as was a low-dose benzodiazepine. This helped calm the patient, but she continued to have issues with disorientation, and significant exhibition of bitterness and refusal to cooperate with her daughter and son who have tried to make contact with her She has become increasingly disoriented and agitated, and it was decided that the safest route for effective diagnoses and treatment would be to transfer to geriatric psychiatry unit this evening. This will be done today. Because of her severe disorientation she will need to be transferred by ambulance. Objective Vital signs: Temp Pulse Resp BP Pulse Ox 97.4 F L 70 20 169/75 H 98 02/03/19 16:00 02/03/19 16:00 02/03/19 16:00 02/03/19 16:00 02/03/19 16:00 Narrative: Please see exam documented in H and P from earlier today. Results Labs on day of discharge: Labs from last 24 hours 02/03/19 02/03/19 02/02/19 11:13 05:46 20:53 WBC RBC Hgb Hct MCV MCH MCHC RDW Plt Count MPV Neut % (Auto) Lymph % (Auto) [place] % (Auto) Eos % (Auto) Baso % (Auto) Neut # (Auto) Lymph # (Auto) [place] # (Auto) Eos # (Auto) Baso # (Auto) Sodium Potassium Chloride Carbon Dioxide Anion Gap BUN Creatinine Estimated Creat Clear Estimated GFR Est GFR ( Amer) Glucose POC Glucose 104 120 H 100 Calcium Total Bilirubin AST ALT Alkaline Phosphatase Troponin I Total Protein Albumin Globulin Albumin/Globulin Ratio Urine Color Urine Appearance Urine pH Ur Specific [place] Urine Protein Urine Glucose (UA) Urine Ketones Urine Blood Urine Nitrate Urine Bilirubin Urine Urobilinogen Ur Leukocyte Esterase Urine WBC Amorphous Sediment 02/02/19 02/02/19 02/02/19 18:02 18:02 17:12 WBC 5.6 RBC 4.06 L Hgb 10.7 L Hct 34.8 L MCV 85.8 MCH 26.5 L MCHC 30.8 L RDW 15.3 Plt Count 251 MPV 7.9 Neut % (Auto) 64.9 Lymph % (Auto) 27.1 [place] % (Auto) 5.6 Eos % (Auto) 1.9 Baso % (Auto) 0.5 Neut # (Auto) 3.6 Lymph # (Auto) 1.5 [place] # (Auto) 0.3 Eos # (Auto) 0.1 Baso # (Auto) 0.0 Sodium 140 Potassium 4.0 Chloride 103 Carbon Dioxide 31 Anion Gap 10.0 BUN 17 Creatinine 0.76 Estimated Creat Clear 44 Estimated GFR 74 Est GFR ( Amer) 90 Glucose 75 POC Glucose Calcium 9.2 Total Bilirubin 0.4 AST 14 L ALT 29 Alkaline Phosphatase 80 Troponin I < 0.02 Total Protein 7.5 Albumin 3.8 Globulin 3.7 H Albumin/Globulin Ratio 1.0 L Urine Color Yellow Urine Appearance Clear Urine pH 7.0 Ur Specific [place] <= 1.005 Urine Protein Negative Urine Glucose (UA) Negative Urine Ketones Negative Urine Blood Negative Urine Nitrate Negative Urine Bilirubin Negative Urine Urobilinogen 0.2 Ur Leukocyte Esterase Negative Urine WBC Occasional Amorphous Sediment Trace DS: Diagnosis - Discharge Diagnosis (1) Hypertension, essential Status: Chronic (2) Agitation Status: Acute (3) Dementia Status: Acute Discharge Plan - Patient Discharge Instructions ACTIVITY: Continue current activity DIET: continue same diet Patient Instructions: Dementia, DI for Altered Mental Status - Follow up Plan Disposition: Xfer Short-Term Hosp Home Medications: Home Medications Medication Instructions Recorded Confirmed Type Aspirin [Aspirin 81mg EC Tab] 81 mg PO DAILY 07/24/17 02/02/19 History Atorvastatin Calcium [Atorvastatin 80 mg PO DAILY 10/21/17 02/02/19 History 80mg Tab] Donepezil HCl [Aricept 10mg 10 mg PO HS 10/21/17 02/03/19 History tablet] Escitalopram Oxalate [Lexapro] 10 mg PO DAILY 10/21/17 02/02/19 History Memantine HCl 10 mg PO BID 10/21/17 02/03/19 History Primidone [Mysoline 50mg tablet] 50 mg PO BID 10/21/17 02/03/19 History diazePAM [Valium 2mg tablet] 2 mg PO BIDP PRN 10/21/17 02/03/19 History Alendronate Sodium 70 mg PO WEEKLY 02/03/19 02/03/19 History Carvedilol [Carvedilol 25mg Tab] 25 mg PO BID 02/03/19 02/03/19 History Metformin HCl 500 mg PO DAILY 02/03/19 02/03/19 History Prescriptions/Medication Reconciliation: Continued Aspirin [Aspirin 81mg EC Tab] 81 mg PO DAILY Atorvastatin Calcium [Atorvastatin 80mg Tab] 80 mg PO DAILY diazePAM [Valium 2mg tablet] 2 mg PO BIDP PRN PRN Reason: Anxiety Primidone [Mysoline 50mg tablet] 50 mg PO BID Memantine HCl 10 mg PO BID Donepezil HCl [Aricept 10mg tablet] 10 mg PO HS Escitalopram Oxalate [Lexapro] 10 mg PO DAILY Carvedilol [Carvedilol 25mg Tab] 25 mg PO BID Metformin HCl 500 mg PO DAILY Alendronate Sodium 70 mg PO WEEKLY - Problem Reconciliation Problems Reviewed?: Yes
--- NOTE | 2019-02-03 17:38 | Electrocardiograph Report ---
APPROVED REPORT Exam: Resting ECG HR:72 bpm ECG Measurements Heart Rate 72 AXES CA 168 P 54 QRSd 120 QRS -45 QT 412 T80 QTc 451 <Conclusion> Normal sinus rhythm Left axis deviation Left ventricular hypertrophy with QRS widening Late R-wave progression Abnormal ECG Electronically signed by : Don Conde, 02/03/2019 17:38:06
== END 2019-02-03 19:50 ==
LOC: ER 17:04 → 2ND 17:04
PROVIDERS: ADMIT Internal Medicine Adolescent Medicine; ATTEND Internal Medicine Adolescent Medicine
CPT/HCPCS: 71010; 71045; 80053; 81001; 82962; 84484; 85025; 93005; 96374; 99285; G0378

== ENCOUNTER → 2019-05-01 08:46 | Outpatient (CLI) | payer MEDICARE, OTHER, SELFPAY ==
--- NOTE | 2019-05-01 08:55 | MM_ITS ---
PROCEDURE: MM DIG SC MAMM UNILAT RT CAD CLINICAL INDICATION: SCREENING There has been previous left mastectomy with follow-up radiation therapy. There is a history of breast cancer patient's mother. COMPARISON: [facility] DIG MAMM-SCREENING UNI-RT from 04/18/2013 [facility] DIG MAMM-SCREENING UNI-RT from 05/05/2014 [facility] DIG MAMM-SCREENING UNI-RT from 05/10/2015 TECHNIQUE: Standard CC and MLO images were obtained. R2 CAD reviewed. FINDINGS: Moderate scattered fibroglandular densities are seen in the breast. The findings are stable unchanged from previous exams. Again noted is slight inversion of the nipple but this is been noted on multiple previous studies. There is no new or suspicious lesion and no suspicious microcalcifications. There are few tiny benign-appearing microcalcifications noted. IMPRESSION: Stable exam with no suspicious lesions seen BI-RAD Category: 2 Benign Finding(s). FOLLOW-UP: 1 Year Follow-up (A letter has been sent to the patient regarding results of the study.) Dictated by: Dr. Morgan Martin MD 05/05/2019 15:[address] Morgan Martin MD in [place] 05/05/2019 15:53
== END ==
PROVIDERS: PCP Nurse Practitioner Family; Visit Provider Nurse Practitioner Family
DX: Z12.31 Encounter for screening mammogram for malignant neoplasm of breast (principal)
CPT/HCPCS: 77067

== ENCOUNTER → 2019-07-17 12:29 | Outpatient (CLI) | payer MEDICARE, OTHER, SELFPAY ==
[2019-07-17 13:07] LABS: Basophils % 0.5 % (0.1-2.0); Eosinophils # 0.2 K/mm3 (0.0-0.4); Eosinophils % 3.8 % (0.1-12.0); Hematocrit 35.9 % (37.0-47.0); Hemoglobin 11.1 g/dL (12.2-16.2); Lymphocytes # 1.2 K/mm3 (0.7-4.5); Mean Corpuscular Hemoglobin 26.2 pg (27.0-31.2); Mean Corpuscular Volume 84.5 fl (81-99); Monocytes # 0.2 K/mm3 (0.1-1.0); Monocytes % 4.5 % (1.7-9.3); Neutrophils # 3.3 K/mm3 (1.8-7.8); Neutrophils % 67.3 % (37.0-80.0); Platelet Count 196 K/mm3 (142-424); Red Blood Count 4.25 M/mm3 (4.20-5.40); Red Cell Distribution Width 15.9 % (11.5-17.5); White Blood Count 4.9 K/mm3 (4.8-10.8)
[2019-07-17 16:11] LABS: Alanine Aminotransferase 34 U/L (12-78); Albumin Level 3.9 gm/dL (3.4-5.0); Albumin/Globulin Ratio 1.3 (1.1-1.8); Alkaline Phosphatase 76 U/L (46-116); Anion Gap 13.1 mEq/L (5-15); Aspartate Amino Transferase 26 U/L (15-37); Bilirubin,Total 0.6 mg/dL (0.2-1.0); Blood Urea Nitrogen 13 mg/dL (7-18); Calcium 9.5 mg/dL (8.5-10.1); Carbon Dioxide 32 mmol/L (21.0-32.0); Chloride 105 mmol/L (98-107); Chol/HDL Ratio 2.4 (1-3.5); Cholesterol 108 mg/dL (140-200); Creatinine,Serum 0.79 mg/dL (0.55-1.02); Estimated Glomerular Filt Rate 71 ml/min (>60); GFR (African American) 86 ML/MIN (>60); Glucose 101 mg/dL (74-106); HDL Cholesterol 45 mg/dL (29-89); LDL Cholesterol 44 mg/dL (0-130); Potassium 4.1 mmoL/L (3.5-5.1); Sodium 146 mmol/L (136-145); Thyroid Stimulating Hormone 2.49 uIU/ml (0.358-3.740); Total Protein,Serum 6.9 gm/dL (6.4-8.2); Triglycerides 93 mg/dL (30-200); VLDL Cholesterol 19 mg/dL (0-40)
== END ==
PROVIDERS: Visit Provider Internal Medicine Adolescent Medicine
DX: E78.5 Hyperlipidemia, unspecified (principal); E11.9 Type 2 diabetes mellitus without complications; I10 Essential (primary) hypertension; Z79.84 Long term (current) use of oral hypoglycemic drugs
CPT/HCPCS: 36415; 80053; 80061; 83036; 84443; 85025

== ENCOUNTER 2019-11-07 22:15 | Emergency (ER) | payer MEDICARE, OTHER, SELFPAY ==
[2019-11-07 22:28] VITALS: BP 225/96; PULSE 75; RESP 16; TEMP 36.5; O2SAT 97; BMI 22.8
--- NOTE | 2019-11-07 22:34 | XR_ITS ---
PROCEDURE: XR CHEST PORTABLE Patient Age:74Y CLINICAL HISTORY: fall fall nonsmoker history of colon and breast cancer. Left mastectomy COMPARISON: CXR2 CHEST-AP VIEW ONLY from 01/31/2017 CXR2V XR chest 2V from 04/29/2018 XR CHEST PORTABLE from 02/02/2019 CT THORACIC SPINE WO CON from 11/07/2019 FINDINGS: AP supine CXR today. Lungs were well expanded with no pneumothorax of nor pleural effusion. Small calcified granuloma towards right lung apex stable as well as other tiny calcified granulomas scattered bilateral. I would note that the upper lobe markings are slightly more pronounced but I suspect this reflects the supine projection most likely a Cardiomediastinal silhouette upper normal.. Pulmonary vascularity ar, upper normal prominence as well The lungs are clear without infiltrates, suspicious nodules, or pleural effusions. No acute bony abnormalities on the single view chest.. There is scoliosis of the spine with levocurvature at the thoracolumbar junction most notable and less pronounced mild dextroscoliosis thoracic spine.. IMPRESSION: Nothing definitely acute at the chest Would note slight increased pulmonary vascularity The favor supine position mainly contributes slight increased prominence upper lobe vessels. But overall does appear overall mild vascular engorgement a compared to prior studies, no overt CHF Dictated by: Manish Allen MD 11/08/2019 16:10 Electronically signed by Manish Allen MD in [place] 11/08/2019 16:10
--- NOTE | 2019-11-07 22:34 | CT_ITS ---
PROCEDURE: CT LUMBAR SPINE WO CON Patient Age:74Y CLINICAL HISTORY: fall patient with dementia. Fall down concrete stairs. Multiple injuries including lumbar region. Lumbar pain COMPARISON: ABDPELW/O CT ABD PELVIS W/O CONTRAST from 01/31/[address] abdomen pelvis w con from 11/07/2017 TECHNIQUE: No IV contrast Axial images obtained with sagittal and coronal reformats. All CT scans at the facility use one or more dose reduction, viz: automated exposure control, ma/kV adjustment per patient size (including targeted exams where dose is matched to indication, i.e. head), or iterative reconstruction technique. FINDINGS: Demineralization. Osteopenia but L1. Stable old superior endplate compression fracture with wedging. Of up to 35 percent loss of height. Schmorl's node superior endplate but these features are stable since January 2017 CT abdomen used for comparison., also October 2017 CT abdomen comparison barely evident posterior positioning of the posterior superior corner of L1 yields only barely evident negligible indentation upon thecal sac L2. Mild acute superior endplate compression fracture. Subtle downward compression fracture superior endplate along with disruption cortex superior endplate. Also slightly abrupt contour at the anterior superior cortex L2 vertebral body. Minimal sclerosis beneath the superior endplate. Of these features all reflect the mild superior endplate compression. No retropulsion. No complicating features otherwise Disc spaces L1/2. Mild disc bulge to the left the left foramen L2/3. A disc intact mild facet arthropathy L4/5. Most prominent facet facet hypertrophy at this level associated with scant 2 mm degenerative anterolisthesis of L4 on 5. Also mild diffuse disc bulge. Features combine to yield mild foraminal encroachment bilateral L5/S1: Grade 1 degenerative spondylolisthesis. Up to nearly 5 mm anterior position of L5 on S1. Prominent facet arthropathy but no discrete pars defect the sacrum intact. Upper portion of coccyx included and unremarkable. Kidneys included with: No urinary tract calculi nor obstruction. Stable cyst upper pole right kidney nearly 10 mm size the, unchanged since prior CT.. Atherosclerotic calcification of slender aorta. No aneurysm. No retroperitoneal findings but. IMPRESSION: L2- mild Acute/recent appearing Superior Endplate Compression Fracture L2 the a the.. L1: Stable old wedging and superior endplate compression fracture. Unchanged since [address] abdomen L5/S1: Stable mild 1 degenerative grade 1 spondylolisthesis L5 on S1 L4/5. Prominent degenerative facet changes with scant up to 2 mm degenerative listhesis the a similar to previous studies Dictated by: Manish Allen MD 11/08/2019 11:34 Electronically signed by Manish Allen MD in [place] 11/08/2019 11:34
--- NOTE | 2019-11-07 22:34 | XR_ITS ---
PROCEDURE: XR PELVIS 1-2V Patient Age:74Y CLINICAL INDICATION: Fall. Down 3 concrete stairs. Multiple injuries. Dementia patient pelvic pain. COMPARISON: ABDPELW/O CT ABD PELVIS W/O CONTRAST from 01/31/[address] abdomen pelvis wo con from 10/22/2017 CT LUMBAR SPINE WO CON from 11/07/2019 TECHNIQUE: XR Pelvis AP View FINDINGS: Osseous pelvis intact. No fracture or dislocation is evident. No significant degenerative change. No lytic or blastic change. The SI joints have an unremarkable appearance. Generous, prominent solid stool is seen throughout the large bowel of loops. Prominent stool most evident at the redundant transverse colon and I believe sigmoid colon region. The osseous pelvis is intact SI joints unremarkable. AP view hips intact. Hip joint space well maintained. And unremarkable.. A round 12 mm sclerotic focus at right iliac crest is a stable feature unchanged since CT dating back to 2016 IMPRESSION: Osseous pelvis intact no acute findings. Hip joint spaces well maintained. Dictated by: Manish Allen MD 11/08/2019 16:34 Electronically signed by Manish Allen MD in [place] 11/08/2019 16:34
--- NOTE | 2019-11-07 22:34 | CT_ITS ---
PROCEDURE: CT THORACIC SPINE WO CON Patient Age:74Y CLINICAL HISTORY: fall dementia patient. Fell down stairs. Injury to chest, thoracic and lumbar spine COMPARISON: ABDPELW CT abdomen pelvis w con from 11/07/2017 CXR2V XR chest 2V from 04/29/2018 TECHNIQUE: No IV contrast Helical axial images obtained with sagittal and coronal reformats. All CT scans at the facility use one or more dose reduction, viz: automated exposure control, ma/kV adjustment per patient size (including targeted exams where dose is matched to indication, i.e. head), or iterative reconstruction technique. FINDINGS: Demineralization, osteopenia at T-spine the T10: Mild/moderate compression injury the with wedging superior endplate the T10.. Age indeterminate. This wedging was not evident on [address] abdomen studies. No appreciable soft tissue swelling associated about this level but no discrete cortical step-off but minor sclerosis superior endplate. Early anterior superior marginal osteophyte and buttressing. With these features I would tend to favor this is more likely a older fracture but difficult to exclude acute or recent in nature.. If significant the pain, the follow-up MR can be performed better discerned a recent from old superior endplate compression at T10 T10-11 disc,: mild hypertrophic ridging midline into the left slightly indenting the thecal sac to the left a, axial image 47. Perhaps scant central disc prominence, bulge. L1. Old superior endplate compression fracture injury unchanged since 2018. L1 with stable loss of height, moderate wedging and superior endplate concavity which appears old. Otherwise the remaining thoracic vertebral bodies appear stable and intact. Only early degenerative disc changes T-spine; for example slight narrowing with vacuum phenomena at T8-9 disc... Scant narrowing at T7/8 disc space most evident left as well. These features associated with mild dextro scoliosis T-spine on with some early marginal osteophyte formation and disc narrowing to the left at these levels above. . Facet arthropathy is most pronounced and of [id number] the where it does yield some mild left foraminal encroachment. Otherwise only minimal facet hypertrophy/arthropathy at other levels lower T-spine . Borderline wall thickening throughout distal esophagus IMPRESSION: T10 mild superior endplate compression and wedging. Age indeterminate. Tend to favor old but cannot exclude a recent mild compression fracture here. (If persistent pain this level and desire further workup, MRI could discern acute from older compression) Old superior L1 compression fracture again noted-stable Mild dextro scoliosis mid T-spine with associated mild degenerative disc changes and facet changes T-spine.. The the Dictated by: Manish Allen MD 11/08/2019 11:33 Electronically signed by Manish Allen MD in [place] 11/08/2019 11:33
--- NOTE | 2019-11-07 22:34 | CT_ITS ---
PROCEDURE: CT CERVICAL SPINE WO CON Patient Age:74Y CLINICAL INDICATION: fall patient with dementia Patient fell down 3 concrete stairs now with neck pain right-sided neck pain low back pain COMPARISON: CSWO CT CERVICAL SPINE W/O CONT from 01/11/[address] cervical spine wo con from 07/24/2017 TECHNIQUE: No IV contrast helical axial CT images obtained with thickened axial sagittal and coronal CT reconstructions performed on independent workstation. All CT scans at the facility use one or more dose reduction, viz: automated exposure control, ma/kV adjustment per patient size (including targeted exams where dose is matched to indication, i.e. head), or iterative reconstruction technique. FINDINGS: No fracture nor subluxation is evident... FINDINGS: Normal alignment. No fracture or dislocation. No lytic or blastic change. Multilevel cervical spondylosis is present. Normal C1-C2 relationships C2-C3: Scant uncovertebral hypertrophy.. Left facet hypertrophy most evident at this level. C3-C4: Uncovertebral hypertrophy with mild bilateral foraminal narrowing. C4-C5: Degenerative disc disease with bilateral uncovertebral hypertrophy-the more generous spur to the left, yielding left-sided foraminal and recess encroachment. C5-C6: Degenerative disc disease. Bilateral Luschka joint hypertrophy Lung apices are clear. No prevertebral soft tissue swelling. Prevertebral soft tissues normal but normal cervical alignment. Posterior processes intact Right thyroid more generous than left with what appears to be 15 mm probable solid thyroid nodule. Suggest thyroid ultrasound. Suspect this probable an indolent nodule with incremental enlargement over time most evident when when compared to previous studies dating back to 2013. But only 1 mm enlargement versus 2018 CT Fluid-filled upper esophagus nonspecific and may be seen with reflux or distal esophageal obstruction IMPRESSION: 1. Cervical spondylosis. Multilevel degenerative changes. 2. No acute fracture or dislocation.. C-spine itself shows with significant change since 07/24/2017 3.. Appears to be 15 mm solid thyroid nodule-would benefit from ultrasound follow-up Dictated by: Manish Allen MD 11/08/2019 07:32 Electronically signed by Manish Allen MD in [place] 11/08/2019 07:32
--- NOTE | 2019-11-07 22:34 | CT_ITS ---
PROCEDURE: CT HEAD/BRAIN WO CON Patient Age:74Y CLINICAL INDICATION: fall dementia fell down concrete stairs. Right-sided neck pain. Low back pain History of breast and colon cancer COMPARISON: HEADWO CT head/brain wo con from 07/24/2017 TECHNIQUE: No IV contrast... Standard axial images were obtained through the head. All CT scans at the facility use one or more dose reduction, viz: automated exposure control, ma/kV adjustment per patient size (including targeted exams where dose is matched to indication, i.e. head), or iterative reconstruction technique. FINDINGS: No acute intracranial findings. Mild diffuse cerebral atrophy compatible with age and prior study. Suggestion of minimal diffuse deep white matter chronic microvascular ischemic gliotic changes typical of aging brain. Question vague tiny less than 5 mm old vague lacune posterior aspect basal ganglia but no discrete acute findings. No intracranial hemorrhage. No hydrocephalus.The ventricles and basal cisterns appear clear and satisfactory. No mass or midline shift nor mass effect. No subdural or extra-axial fluid collection is evident. Posterior fossa unremarkable. Skull intact- calvarium unremarkable appearance. Nomastoid effusions. Mastoid air cells are well developed and clear. Middle ear clear. IAC's symmetric. Nosinus air-fluid level. Visualized portions of the paranasal sinuses and orbits unremarkable. IMPRESSION: No acute intracranial findings. Stable CT brain without contrast. Mild cerebral atrophy. Mild chronic small vessel deep white-matter ischemic gliotic changes cerebral hemispheres the again noted Dictated by: Manish Allen MD 11/08/2019 16:53 Electronically signed by Manish Allen MD in [place] 11/08/2019 16:53
[2019-11-07 22:48] LABS: Microscopic, Urine URINE MICROSCOPIC (MICROSCOPIC)
[2019-11-07 22:50] LABS: Appearance,Urine CLEAR (Clear); Bilirubin,Urine Negative (Negative); Blood, Urine Negative (Negative); Color,Urine YELLOW (Yellow); Glucose,Urine (UA) Negative (Negative); Ketones,Urine Negative (Negative); Leukocyte Esterase,Urine Negative (Negative); Nitrate,Urine Negative (Negative); PH,Urine 6.5 (5.0-8.5); Protein,Urine Negative (Negative); Urobilinogen,Urine 0.2 EU/dl (0.2)
--- NOTE | 2019-11-07 22:51 | PC.NURSE ---
pt assisted to wc. family at bedside
[2019-11-07 22:52] LABS: Basophils # 0.1 K/mm3 (0-0.2); Basophils % 1.2 % (0.1-2.0); Eosinophils # 0.1 K/mm3 (0.0-0.4); Eosinophils % 1.3 % (0.1-12.0); Hemoglobin 12.1 g/dL (12.2-16.2); Lymphocytes # 1.4 K/mm3 (0.7-4.5); Lymphocytes % 19.6 % (10-50); Mean Corpuscular HGB Conc 31.9 g/dL (31.8-35.4); Mean Corpuscular Hemoglobin 25.1 pg (27.0-31.2); Mean Corpuscular Volume 78.8 fl (81-99); Mean Platelet Volume 7.4 fl (7.4-10.4); Monocytes # 0.4 K/mm3 (0.1-1.0); Neutrophils # 5.2 K/mm3 (1.8-7.8); Neutrophils % 72.9 % (37.0-80.0); Platelet Count 299 K/mm3 (142-424); Red Blood Count 4.83 M/mm3 (4.20-5.40); Red Cell Distribution Width 14.9 % (11.5-17.5); White Blood Count 7.2 K/mm3 (4.8-10.8)
[2019-11-07 22:53] VITALS: BP 193/99; PULSE 81; RESP 16; O2SAT 96
[2019-11-07 22:53] LABS: Chloride 98 mmol/L (98-107); Sodium 137 mmol/L (136-145)
--- NOTE | 2019-11-07 22:54 | PC.NURSE ---
pt placed in gown, radiology aware of ct's and xrays ordered.
[2019-11-07 22:56] LABS: Alanine Aminotransferase 27 U/L (12-78); Alkaline Phosphatase 95 U/L (38-126); Aspartate Amino Transferase 36 U/L (14-36); Bilirubin,Total 0.5 mg/dl (0.2-1.3); Blood Urea Nitrogen 23 mg/dl (7-17); Carbon Dioxide 32 mmol/L (22.0-30.0); Creatinine Clearance Estimated 43 mL/min (50-200); Estimated Glomerular Filt Rate 81 ml/min (>60); GFR (African American) 98 ML/MIN (>60)
[2019-11-07 22:57] LABS: Albumin Level 4.6 g/dl (3.5-5.0); Albumin/Globulin Ratio 1.2 (1.1-1.8); Calcium 10.3 mg/dl (8.4-10.2); Globulin 3.7 g/dL (1.3-3.2); Glucose 123 mg/dl (74-100); Total Protein,Serum 8.3 g/dl (6.3-8.2)
--- NOTE | 2019-11-07 23:03 | PC.NURSE ---
pt to xray at this time
[2019-11-07 23:25] LABS: Anion Gap 11.4 mEq/L (5-15); Potassium 4.4 mmoL/L (3.5-5.1); Troponin I < 0.01 ng/ml (0.00-0.034)
--- NOTE | 2019-11-08 00:01 | PC.NURSE ---
return from rad
--- NOTE | 2019-11-08 00:11 | PC.NURSE ---
reports from [facility]. benavides on phone with radiologist to confirm report.
--- NOTE | 2019-11-08 00:28 | [facility].EDGENADL ---
ED Disposition Clinical Impression: Compression fracture Disposition: Xfer Short-Term Hosp Condition on Discharge: Good Instructions: How to Prevent Falls Additional Instructions: Patient is being transferred to [facility] per Dr. Ramirez. Referrals: Jonathon Israel MD [Primary Care Provider] - Forms: Transfer Record - ED - Critical Care Critical Care Time: No Attestation: On 11/07/19, the high probability of a clinically significant, sudden or life threatening deterioration of the following system(s) required my full and direct attention, intervention and personal management. The time I documented below is in addition to time spent performing reported procedures but includes the following listed in this critical care notation. Medical Decision Making - Medical Records Medical records reviewed: Yes: I reviewed the patient's medical records. - Heladio Inquiry Pt receiving controlled substance: No Vital Signs: 11/07/19 22:28 11/07/19 22:53 Temperature 97.7 F Temperature Source Oral Pulse Rate [Right Brachial] 75 81 Respiratory Rate 16 16 Blood Pressure [Right Arm] 225/96 H 193/99 H Blood Pressure Mean [Right Arm] 139 130 Blood Pressure Source [Right Arm] Automatic Cuff Blood Pressure Position [Right Arm] Sitting 02 Sat by Pulse Oximetry 97 96 Oxygen Delivery Method Room Air Room Air - Lab Data Lab results reviewed: Yes: I reviewed the patient's lab results. Lab Results 11/07/19 22:42: Urine Color Yellow, Urine Appearance Clear, Urine pH 6.5, Ur Specific [place] 1.020, Urine Protein Negative, Urine Glucose (UA) Negative, Urine Ketones Negative, Urine Blood Negative, Urine Nitrate Negative, Urine Bilirubin Negative, Urine Urobilinogen 0.2, Ur Leukocyte Esterase Negative, Urine WBC 3-5, Ur Squamous Epith Cells 3-5 11/07/19 22:42: WBC 7.2, RBC 4.83, Hgb 12.1 L, Hct 38.0, MCV 78.8 L, MCH 25.1 L, MCHC 31.9, RDW 14.9, Plt Count 299, MPV 7.4, Neut % (Auto) 72.9, Lymph % (Auto) 19.6, [place] % (Auto) 5.0, Eos % (Auto) 1.3, Baso % (Auto) 1.2, Neut # (Auto) 5.2, Lymph # (Auto) 1.4, [place] # (Auto) 0.4, Eos # (Auto) 0.1, Baso # (Auto) 0.1 11/07/19 22:42: Sodium 137, Potassium 4.4, Chloride 98, Carbon Dioxide 32 H, Anion Gap 11.4, BUN 23 H, Creatinine 0.70, Estimated Creat Clear 43, Estimated GFR 81, Est GFR ( Amer) 98, Glucose 123 H, Calcium 10.3 H, Total Bilirubin 0.5, AST 36, ALT 27, Alkaline Phosphatase 95, Troponin I < 0.01, Total Protein 8.3 H, Albumin 4.6, Globulin 3.7 H, Albumin/Globulin Ratio 1.2 Result diagrams: 11/07/19 22:42 11/07/19 22:42 Orders (Tests/Meds): ORDERS Category Date Time Status CT cervical spine wo con Stat Cat Scan 11/07/19 22:[address] head/brain wo con Stat Cat Scan 11/07/19 22:[address] lumbar spine wo con Stat Cat Scan 11/07/19 22:[address] thoracic spine wo con Stat Cat Scan 11/07/19 22:34 Taken XR chest portable Stat Exams 11/07/19 22:34 Taken XR pelvis 1-2V Stat Exams 11/07/19 22:34 Taken Troponin I Q3H Lab 11/08/19 01:45 Ordered Troponin I Q3H Lab 11/08/19 04:45 Ordered - CT Data CT Scan: L-Spine Time Received: 00:39 Preliminary Findings: Abnormal (Moderate L2 wedge deformity) General Adult HPI - General Chief complaint: Fall Stated complaint: AO 11/07/192015 fall back pain red area on head Time Seen by Provider: 11/08/19 00:20 Mode of Arrival: Family Vehicle Limitations: No Limitations Description of Symptoms (Recalled from ER Triage Doc. by RN): pt fell outside, unsure of details: daughter said she was upright one moment, she herself turned around and saw the patient on her back with her legs up in the air the next moment on a set of 3 concrete steps off of the porch. pt is a diagnosed dementia patient, who repetitively verbalizes over and over different phrases she hears or is asked. daughter removed patient's clothing, didn't notice anything visible and alerted pcp to the fall. dtr states she went to remove
[2019-11-08 00:32] VITALS: BP 178/97; PULSE 75; RESP 18; TEMP 36.7; O2SAT 98
== END 2019-11-08 01:19 | disposition short-term general hospital (02) ==
PROVIDERS: Emergency Provider Family Medicine; PCP Internal Medicine Adolescent Medicine
DX: S32.020A Wedge compression fracture of second lumbar vertebra, initial encounter for closed fracture (principal); W01.0XXA Fall on same level from slipping, tripping and stumbling without subsequent striking against object, initial encounter; Y92.099 Unspecified place in other non-institutional residence as the place of occurrence of the external cause; F03.90 Unspecified dementia, unspecified severity, without behavioral disturbance, psychotic disturbance, mood disturbance, and anxiety; S00.01XA Abrasion of scalp, initial encounter; E11.9 Type 2 diabetes mellitus without complications; I10 Essential (primary) hypertension; E78.5 Hyperlipidemia, unspecified; K21.9 Gastro-esophageal reflux disease without esophagitis; Z88.2 Allergy status to sulfonamides
CPT/HCPCS: 70450; 71045; 72125; 72128; 72131; 72170; 80053; 81001; 84484; 85025; 99283; 99284

== ENCOUNTER 2020-03-18 20:02 | Observation (INO) | payer MEDICARE, OTHER, SELFPAY ==
[2020-03-18] VITALS (8 sets, daily range): BP systolic 130–156; BP diastolic 62–105; PULSE 71–150; RESP 16; TEMP 37.1–37.3; O2SAT 94–97; BMI 21.2; BMI 20.1
--- NOTE | 2020-03-18 20:37 | CT_ITS ---
Procedure: CT ABDOMEN PELVIS W CON Referring Doctor: Claudine Petersen Patient Age:75Y CLINICAL INDICATION: left abdominal and flank pain Fall 2 days ago with lower abdominal pain, back pain. Dementia COMPARISON: CT ABDPELW CT ABD PELVIS W/ CONTRAST from 09/25/[address] abdomen pelvis w con from 11/07/[address] LUMBAR SPINE WO CON from 03/18/2020 TECHNIQUE: Helical CT scanning through the abdomen and pelvis following 75 cc of Optiray 370. IV contrast only no oral contrast utilized. The helical axial images obtained with sagittal and coronal reformats. All CT scans at the facility use one or more dose reduction, viz: automated exposure control, ma/kV adjustment per patient size (including targeted exams where dose is matched to indication, i.e. head), or iterative reconstruction technique. FINDINGS: Lower thorax: Small right pleural effusion with scant left pleural effusion.. Bibasilar atelectasis. Hiatal hernia. Mild cardiomegaly again noted ABDOMEN: Liver: . No biliary dilatation. Small stable cyst measuring 1.2 cm at central liver/segment 8 of liver Gallbladder: Nondistended. No radio opaque stones. Pancreas: 12 mm cyst posteriorly at the uncinate-no significant change in size since [address] There is also a smaller slightly flat 10 mm wide cyst at the posterior body of pancreas which is been present since 2016 and is perhaps 1 mm larger. As were discussed on previous reports-possibilities include most likely stable benign pancreatic cysts. Less likely relatively indolent pancreatic cystic neoplasms considered in differential diagnosis but unlikely: These have been discussed previous reports . Spleen: unremarkable Adrenals: unremarkable Kidneys/ureters: . No urinary tract calculi nor obstruction. Right kidney benign cyst 17 mm upper pole right kidney Bladder: Nondistended. No obvious stones or masses. . Hysterectomy. No significant appearing adnexal mass.. Favor encountering unopacified bowel loops at the pelvis and pre rectal space.. GI tract Large bowel. Constipation with prominent increased stool throughout the colon most pronounced at rectum. Appears to be fecal impaction rectum associated with with latosha rectal fat stranding and hazy appearance suggesting Stercoral colitis. There is also these inflammatory changes the perirectal region associated with a thin fluid collection throughout the presacral space but this-this feature require follow-up There is anastomosis at the region of the right colon-appears stable Small-bowel a normal caliber with upper normal wall thickening and mild enhancement small-bowel loops towards right lower quadrant. Stomach bowel: Nondistended.. Hiatal hernia again noted no free air. Lymph nodes: No the significant enlarged abdominal lymph nodes apparent. There is abnormal hazy appearance here retrocrural region here at the lower most thorax. And difficult to exclude enlarged retrocrural node here currently. . Vasculature: Diffuse atherosclerotic calcification abdominal aorta and iliacs. Calcification origin of SMA and celiac artery but there seems to be good perfusion of these vessels. Bones: The Lumbar spine findings detailed in the CT L-spine report.. -T12 acute wedge compression fracture with loss of the -L2 progressive pronounced wedge compression fractures since October 2019-suspect at least in part acute changes here. -Stable old compression fractures to the right L1 vertebra, unchanged since November 04 the the Levoscoliosis upper L-spine slightly more pronounced today due to the combination of above findings Multilevel degenerative changes spine again seen .... Additionally note on this study: mild sup
--- NOTE | 2020-03-18 20:38 | ECG_ITS ---
APPROVED REPORT Exam: Resting ECG HR:141 bpm ECG Measurements Heart Rate 141 AXES QRSd 122 QRS 67 QT 332 T 124 QTc 508 <Conclusion> Atrial fibrillation with rapid ventricular response Left ventricular hypertrophy with QRS widening Marked ST abnormality, possible inferolateral subendocardial injury Abnormal ECG Electronically signed by : Don Conde, 03/19/2020 07:20:16
--- NOTE | 2020-03-18 20:39 | CT_ITS ---
PROCEDURE: CT HEAD/BRAIN WO CON Referring Doctor: Claudine Petersen Patient Age:75Y CLINICAL INDICATION: fall ams Altered mental status. Fall 2 days ago. Dementia. Difficulty holding still and cooperating COMPARISON: CT HDWO CT HEAD W/O CONTRAST from 12/13/[address] HEAD/BRAIN WO CON from 11/07/2019 TECHNIQUE: No IV contrast. Standard axial images were obtained. All CT scans at the facility use one or more dose reduction, viz: automated exposure control, ma/kV adjustment per patient size (including targeted exams where dose is matched to indication, i.e. head), or iterative reconstruction technique. FINDINGS: . the head is tilted in the CT gantry which a distorts images as does some motion artifact. Slightly limited but adequate diagnostic survey study no acute intracranial findings. No territorial infarct No intracranial hemorrhage.. Mild diffuse cerebral atrophy compatible with previous study mild dilatation lateral ventricles of could reflects the cerebral atrophy .The ventricles and basal cisterns appear clear and satisfactory otherwise. No mass or midline shift nor mass effect. No subdural or extra-axial fluid collection is evident. Posterior fossa unremarkable.-Although is distorted due to the head tilt Skull intact-subtle focus of osseous prominence extending from outer table right frontal bone is a stable feature since 2016 Nomastoid effusions. Mastoid air cells are well developed and clear. Middle ear clear. IAC's symmetric. Nosinus air-fluid level. Visualized portions of the paranasal sinuses and orbits unremarkable. IMPRESSION: No acute intracranial findings . No significant change since October 2019 CT head Mild diffuse cerebral atrophy age-appropriate Dictated by: Manish Allen MD 03/19/2020 09:12 Manish Allen MD in [place] 03/19/2020 09:12
--- NOTE | 2020-03-18 20:40 | XR_ITS ---
PROCEDURE: XR CHEST PORTABLE Referring Doctor: Claudine Petersen Patient Age:75Y CLINICAL HISTORY: cough weak fatigue generalized weakness . COMPARISON: CR CXR2V XR chest 2V from 04/29/2018 CR XR CHEST PORTABLE from 02/02/2019 CR XR CHEST PORTABLE from 11/07/[address] ABDOMEN PELVIS W CON from 03/18/2020 FINDINGS: . AP portable upright chest performed today. Less optimal inspiration. A no prominent findings but there may be some mild atelectasis accounting for the subtle density likely minor airspace disease right lung base just above the right hemidiaphragm. CP angles are sharp on plain film with no evident pleural effusions of however small effusions were seen on CT The heart upper normal in size with mild cardiomegaly. Beth and mediastinal structures appear satisfactory and stable but Calcified granuloma at the right upper lung as well as a few small partially calcified tiny granulomas at the left lung. There is dextroscoliosis of the T-spine of levocurvature at the thoracolumbar junction again noted. Chest wall unremarkable IMPRESSION: No prominent findings Only subtle airspace disease right lung base, reflecting minimal atelectasis (as suggested on CT abdomen from today) Borderline cardiomegaly Dictated by: Manish Allen MD 03/19/2020 12:36 Manish Allen MD in [place] 03/19/2020 12:36
--- NOTE | 2020-03-18 20:40 | CT_ITS ---
PROCEDURE: CT LUMBAR SPINE WO CON Referring Doctor: Claudine Petersen Patient Age:75Y CLINICAL HISTORY: fall, pain left abdominal and flank pain Fall 2 days ago with lower abdominal pain, back pain. Dementia COMPARISON: CT CT LUMBAR SPINE WO CON from 11/07/2019 TECHNIQUE: Helical axial images obtained with sagittal and coronal reformats and thickened axial images performed all CT scans at the facility use one or more dose reduction, viz: automated exposure control, ma/kV adjustment per patient size (including targeted exams where dose is matched to indication, i.e. head), or iterative reconstruction technique. FINDINGS: New compression fractures lumbar spine when compared to 11/07/2019 CT lumbar slightly greater levo scoliosis Included inferior aspect of T11 appears intact. T12 vertebra: Prominent acute wedge compression fracture with mild retropulsion. Over 50 percent loss of height anteriorly with even greater over 60-70 percent loss of height centrally due to the biconcave superior and inferior endplate changes. Most pronounced concave contour at inferior endplate.. Mild retropulsion does narrowing the spinal canal at T12; there is a generous volume underlying osseous spinal canal with [id number] canal stenosis. (The AP dimension of the spinal canal today 10.6 mm on sagittal image 34. Previously this measured 15.7 mm at same level on October 2019 exam) L1. Overall stable appearing wedge compression fracture with 25-30 percent loss of height. Loss height most evident to the right; and anterior. Schmorl's node superior overall findings this level stable since october 2019 CT. L2. Acute wedge compression fracture involving superior endplate L2 is superimposed upon previous very mild superior endplate compression seen October 2019 With the new or interval injury there is now approximate 50 percent compression and loss of height. Diffuse sclerosis beneath the superior endplate reflects a compression changes here at superior endplate. Inferior endplate intact but of only scant posterior positioning of the superior posterior corner of L2 Disc space evaluation: T12/L1. Disc in neural foramen intact L1/L2 no significant disc protrusion mild retrolisthesis which yields bilateral foraminal encroachment, along with scant posterior retropulsion superior posterior corner of L2 . L2/3 a borderline disc space narrowing posteriorly with scant scant disc bulge midline into the left mild left foraminal encroachment results L3/4 disc intact. Mild left foraminal narrowing bilaterally 2 to the scant disc bulge and the mild-/moderate facet and posterior element hypertrophy L4/5 moderate bilateral facet hypertrophy diffuse disc bulge. L5/S1. Facet arthropathy but mild degenerative anterolisthesis L5 on S1 5 mm along with scant foraminal disc bulge but these features do yield moderate narrowing at the neural foramen bilaterally but a similar to previous study Sacrum and coccyx appear intact. Superior SI joints intact. 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 IMPRESSION: T12 acute compression fracture. -moderate to pronounced acute wedge compression fractures T12 with mild retropulsion . Yield mild to moderate relative spinal stenosis at T12 L2 interval, likely acute, additional superior endplate wedge compression fracture L2 vertebra. .. Also now scant retrolisthesis at L1/2, this along with other features yielding mild bilateral foraminal encroachment Stable old we
--- NOTE | 2020-03-18 20:52 | HMH.EDGENADL ---
ED Disposition Clinical Impression: Compression fracture Fall Qualifiers: Encounter type: initial encounter Qualified Code(s): W19.XXXA - Unspecified fall, initial encounter Atrial fibrillation Qualifiers: Atrial fibrillation type: unspecified Qualified Code(s): I48.91 - Unspecified atrial fibrillation Disposition: Admitted As Inpatient Condition on Discharge: Good - Critical Care Critical Care Time: No Attestation: On 03/18/20, the high probability of a clinically significant, sudden or life threatening deterioration of the following system(s) required my full and direct attention, intervention and personal management. The time I documented below is in addition to time spent performing reported procedures but includes the following listed in this critical care notation. Medical Decision Making - Medical Records Medical records reviewed: Yes: I reviewed the patient's medical records. - Heladio Inquiry Pt receiving controlled substance: No Vital Signs: 03/18/20 20:03 03/18/20 21:00 03/18/20 21:30 Temperature 98.7 F Temperature Source Oral Pulse Rate [Left Radial] 71 150 H 78 Respiratory Rate 16 16 16 Blood Pressure [Right Arm] 150/73 H 154/105 H 135/94 H Blood Pressure Mean [Right Arm] 98 121 107 Blood Pressure Source [Right Arm] Automatic Cuff Blood Pressure Position [Right Arm] Sitting 02 Sat by Pulse Oximetry 97 96 96 Oxygen Delivery Method Room Air Room Air Room Air 03/18/20 21:56 03/18/20 21:57 03/18/20 22:27 Temperature Temperature Source Pulse Rate [Left Radial] 87 86 73 Respiratory Rate 16 16 16 Blood Pressure [Right Arm] 156/68 H 146/67 H 130/62 Blood Pressure Mean [Right Arm] 97 93 84 Blood Pressure Source [Right Arm] Blood Pressure Position [Right Arm] 02 Sat by Pulse Oximetry 96 97 95 Oxygen Delivery Method Room Air Room Air Room Air 03/18/20 23:27 Temperature Temperature Source Pulse Rate [Left Radial] 78 Respiratory Rate 16 Blood Pressure [Right Arm] 135/64 Blood Pressure Mean [Right Arm] 87 Blood Pressure Source [Right Arm] Blood Pressure Position [Right Arm] 02 Sat by Pulse Oximetry 94 L Oxygen Delivery Method Room Air - Lab Data Lab Results 03/18/20 20:51: WBC 9.7, RBC 4.33, Hgb 11.3 L, Hct 34.2 L, MCV 79.1 L, MCH 26.2 L, MCHC 33.1, RDW 15.5, Plt Count 296, MPV 7.5, Neut % (Auto) 75.6, Lymph % (Auto) 16.6, Nobles % (Auto) 6.3, Eos % (Auto) 1.2, Baso % (Auto) 0.3, Neut # (Auto) 7.3, Lymph # (Auto) 1.6, Nobles # (Auto) 0.6, Eos # (Auto) 0.1, Baso # (Auto) 0.0 03/18/20 20:51: PT 11.1, INR 1.00 03/18/20 20:51: Sodium 137, Potassium 3.4 L, Chloride 99, Carbon Dioxide 28, Anion Gap 13.4, BUN 26 H, Creatinine 0.70, Estimated Creat Clear 40, Estimated GFR 81, Est GFR ( Amer) 98, Glucose 195 H, Calcium 9.4, Total Bilirubin 0.4, AST 29, ALT 25, Alkaline Phosphatase 63, Troponin I 0.02, Total Protein 6.7, Albumin 3.7, Globulin 3.0, Albumin/Globulin Ratio 1.2, TSH 2.78 03/18/20 20:51: Magnesium 2.2 03/18/20 20:51: SARS-CoV-2 IgG Ab (Rapid) Negative, SARS-CoV-2 IgM Ab (Rapid) Negative Result diagrams: 03/18/20 20:51 03/18/20 20:51 Orders (Tests/Meds): ED MEDICATIONS Discontinued Medications Generic Name Dose Route Start Last Admin Trade Name Freq PRN Reason Stop Dose Admin Ioversol 75 ml 03/18/20 21:53 03/18/20 21:54 Ioversol-350 (74%) 100ml Vial IV 03/18/20 21:54 75 ml ONCE ONE Administration Protocol Metoprolol Tartrate 5 mg 03/18/20 21:04 03/18/20 21:35 Metoprolol Tartrate 5mg/5ml Vial IV 03/18/20 21:05 5 mg ONCE ONE Administration Metoprolol Tartrate 25 mg 03/18/20 21:19 03/18/20 21:38 Metoprolol Tartrate 50mg Tablet PO 03/18/20 21:20 25 mg ONCE ONE Administration Sodium Chloride 10 ml 03/18/20 21:53 03/18/20 21:54 Sodium Chloride 0.9% 10ml Syr (Rad Only) IV 03/18/20 21:54 10 ml ONCE ONE Administration ORDERS Category Date Time Status CT abdomen pelvis w con Stat Cat Scan
[2020-03-18 21:07] LABS: Basophils % 0.3 % (0.1-2.0); Chloride 99 mmol/L (98-107); Eosinophils # 0.1 K/mm3 (0.0-0.4); Eosinophils % 1.2 % (0.1-12.0); Hematocrit 34.2 % (37.0-47.0); Hemoglobin 11.3 g/dL (12.2-16.2); Lymphocytes # 1.6 K/mm3 (0.7-4.5); Lymphocytes % 16.6 % (10-50); Mean Corpuscular HGB Conc 33.1 g/dL (31.8-35.4); Mean Corpuscular Hemoglobin 26.2 pg (27.0-31.2); Mean Corpuscular Volume 79.1 fl (81-99); Mean Platelet Volume 7.5 fl (7.4-10.4); Monocytes # 0.6 K/mm3 (0.1-1.0); Monocytes % 6.3 % (1.7-9.3); Neutrophils # 7.3 K/mm3 (1.8-7.8); Neutrophils % 75.6 % (37.0-80.0); Platelet Count 296 K/mm3 (142-424); Red Blood Count 4.33 M/mm3 (4.20-5.40); Red Cell Distribution Width 15.5 % (11.5-17.5); White Blood Count 9.7 K/mm3 (4.8-10.8)
[2020-03-18 21:08] LABS: Potassium 3.4 mmoL/L (3.5-5.1); Sodium 137 mmol/L (136-145)
[2020-03-18 21:10] LABS: Alanine Aminotransferase 25 U/L (12-78); Alkaline Phosphatase 63 U/L (38-126); Aspartate Amino Transferase 29 U/L (14-36); Bilirubin,Total 0.4 mg/dl (0.2-1.3); Blood Urea Nitrogen 26 mg/dl (7-17); Creatinine Clearance Estimated 40 mL/min (50-200); Estimated Glomerular Filt Rate 81 ml/min (>60); GFR (African American) 98 ML/MIN (>60); Magnesium 2.2 mg/dl (1.6-2.3)
[2020-03-18 21:11] LABS: Albumin Level 3.7 g/dl (3.5-5.0); Albumin/Globulin Ratio 1.2 (1.1-1.8); Anion Gap 13.4 mEq/L (5-15); Calcium 9.4 mg/dl (8.4-10.2); Carbon Dioxide 28 mmol/L (22.0-30.0); Glucose 195 mg/dl (74-100); Total Protein,Serum 6.7 g/dl (6.3-8.2)
[2020-03-18 21:14] LABS: Prothrombin Time 11.1 seconds (9.4-11.8)
[2020-03-18 21:23] LABS: Troponin I 0.02 ng/ml (0.00-0.034)
[2020-03-18 21:29] LABS: Coronavirus 19 IgG Antibody Negative (Negative); Coronavirus 19 IgM Antibody Negative (Negative)
[2020-03-18 21:42] LABS: Thyroid Stimulating Hormone 2.78 uIU/mL (0.465-4.68)
--- NOTE | 2020-03-18 21:56 | ECG_ITS ---
APPROVED REPORT Exam: Resting ECG HR:83 bpm ECG Measurements Heart Rate [address] 170 P 68 QRSd 130 QRS 25 QT 400 T 122 QTc 470 <Conclusion> Normal sinus rhythm Left bundle branch block Abnormal ECG Electronically signed by : Don Conde, 03/19/2020 07:20:04
--- NOTE | 2020-03-18 23:40 | PC.NURSE ---
Report received from Rj Nolasco RN.
--- NOTE | 2020-03-18 23:41 | PC.NURSE ---
report called to VJ Cody
--- NOTE | 2020-03-18 23:42 | PC.NURSE ---
annette Marques given to Glo at handoff
[2020-03-19] VITALS (8 sets, daily range): BP systolic 123–153; BP diastolic 41–88; PULSE 60–80; RESP 15–18; TEMP 36.5–36.8; O2SAT 92–95; BMI 20.2
--- NOTE | 2020-03-19 | PC.NURSE ---
Pt. arrived to room 205 via wheelchair.
--- NOTE | 2020-03-19 01:05 | PC.NURSE ---
Admission assessment completed.Pt. alert to person and place, Pt. unsure of time and situation. Lungs CTA. Heart at RRR. school bus monitor in place, Continuous pulse ox in place. BS present x4 quad. ABD soft non tender. No edema noted. Yellow bruise noted to back just under left shoulder blade. Skin remains intact. Pt. rates back paina t 10/10. See EMAR for medications given. TEDS in place. Attends on. Nurse educated pt. on use of call light and waiting for staff to arrive before getting up. Pt. v/u. Pt. up to bathroom with standby assist x1. No void or BM. Pt. back to bed with standby assist x1. Bed alarm on, call light withing reach, will continue to monitor.
--- NOTE | 2020-03-19 04:50 | PC.NURSE ---
Reassessment completed. No acute changes from previous assessment. VSS. Pt. remains oriented to person and place only. Lungs CTA, Heart at RRR. BS present x4 quadrants. Pt. reports back pain, using segundo voss scale pt. rates pain at 4/10, requests pain medication, given, see EMAR. Pt. denies needs, Call light within reach, bed alarm on, will continue to monitor.
--- NOTE | 2020-03-19 04:53 | PC.NURSE ---
LATE ENTRY- PT ARRIVED TO THE FLOOR VIA W/C FROM ED @ 2058
[2020-03-19 05:58] LABS: Microscopic, Urine URINE MICROSCOPIC (MICROSCOPIC)
[2020-03-19 06:00] LABS: Basophils % 0.5 % (0.1-2.0); Eosinophils # 0.1 K/mm3 (0.0-0.4); Eosinophils % 0.8 % (0.1-12.0); Hematocrit 31.8 % (37.0-47.0); Hemoglobin 10.4 g/dL (12.2-16.2); Lymphocytes # 2.3 K/mm3 (0.7-4.5); Lymphocytes % 27.5 % (10-50); Mean Corpuscular HGB Conc 32.7 g/dL (31.8-35.4); Mean Corpuscular Hemoglobin 26.4 pg (27.0-31.2); Mean Corpuscular Volume 80.8 fl (81-99); Mean Platelet Volume 7.8 fl (7.4-10.4); Monocytes # 0.7 K/mm3 (0.1-1.0); Monocytes % 7.9 % (1.7-9.3); Neutrophils # 5.2 K/mm3 (1.8-7.8); Neutrophils % 63.4 % (37.0-80.0); Platelet Count 278 K/mm3 (142-424); Red Blood Count 3.93 M/mm3 (4.20-5.40); Red Cell Distribution Width 15.8 % (11.5-17.5); White Blood Count 8.2 K/mm3 (4.8-10.8)
[2020-03-19 06:10] LABS: Chloride 100 mmol/L (98-107); Sodium 137 mmol/L (136-145)
[2020-03-19 06:11] LABS: Potassium 3.6 mmoL/L (3.5-5.1)
[2020-03-19 06:13] LABS: Appearance,Urine CLEAR (Clear); Bilirubin,Urine Negative (Negative); Blood, Urine Negative (Negative); Color,Urine YELLOW (Yellow); Glucose,Urine (UA) Negative (Negative); Ketones,Urine Negative (Negative); Leukocyte Esterase,Urine Negative (Negative); Nitrate,Urine Negative (Negative); Protein,Urine Negative (Negative); Urobilinogen,Urine 0.2 EU/dl (0.2)
[2020-03-19 06:13] LABS: Blood Urea Nitrogen 24 mg/dl (7-17); Creatinine Clearance Estimated 39 mL/min (50-200); Estimated Glomerular Filt Rate 81 ml/min (>60); GFR (African American) 98 ML/MIN (>60)
[2020-03-19 06:14] LABS: Anion Gap 11.6 mEq/L (5-15); Calcium 9.3 mg/dl (8.4-10.2); Carbon Dioxide 29 mmol/L (22.0-30.0); Glucose 134 mg/dl (74-100)
[2020-03-19 06:34] LABS: Bacteria,Urine Trace /lpf; RBC,Urine Occasional #/hpf (0-3)
--- NOTE | 2020-03-19 07:19 | P.CONPHA_ITS ---
[facility] Pharmacy VTE Monitoring - Patient Demographics Admission date: 03/18/20 Report Date: 03/19/20 Time: 07:20 Allergies/Adverse Reactions: Patient Allergies propoxyphene [From DARVON] Allergy (Unknown, Verified 07/17/19 10:01) Sulfa (Sulfonamide Antibiotics) [SULFA (SULFONAMIDE ANTIBIOTICS)] Allergy (Unknown, Verified 07/17/19 10:01) Height: 1.6 m Weight: 51.88 kg Patient Problems: Current Active Problems Compression fracture (Acute) Fall (Acute) Atrial fibrillation (Acute) - VTE Risk Labs: VTE Related Lab Results Hgb 10.4 g/dL (12.2-16.2) L 03/19/20 05:44 Hct 31.8 % (37.0-47.0) L 03/19/20 05:44 Plt Count 278 K/mm3 (142-424) 03/19/20 05:44 PT 11.1 seconds (9.4-11.8) 03/18/20 20:51 INR 1.00 (0.9-1.1) 03/18/20 20:51 BUN 24 mg/dl (7-17) H 03/19/20 05:44 Creatinine 0.70 mg/dl (0.52-1.04) 03/19/20 05:44 Estimated Creat Clear 39 mL/min (50-200) 03/19/20 05:44 Was VTE Risk Assessment Performed: Yes VTE Score: 1 VTE Risk Level: Very Low Risk - Prophylaxis VTE Prophylaxis Ordered?: Yes Types of VTE Prophylaxis: TEDS Knee High Location of Applied Device: Bilateral Lower Extremeties
--- NOTE | 2020-03-19 07:22 | PC.NURSE ---
Report given to Rj Beckford RN.
--- NOTE | 2020-03-19 08:44 | HMH.HP ---
*Admission Date: 03/18/20 *Chief complaint: Fall, instability, vertebral compression fracture and pubic ramus fracture *History of present illness: The patient is a 75 year old female with a history of HTN, DM, dementia who presents with her daughter for generalized weakness, frequent falls. Patient is awake, alert. Can answer questions appropriately. On exam patient does have some left sided abdominal pain and CVA tenderness on the left. No midline lumbar pain. Neurovascularly intact. As far as her abdominal pain and acute on chronic back pain will order UA, CT abdomen/pelvis and L-spine CT. For her frequent falls, EKG was obtained as well as troponins, CBC, CMP, magnesium, TSH. EKG shows afib with RVR with rates in the 140s. No history of afib per daughter. Unsure of onset. Given 5 mg metoprolol IV - patient converted to NSR with a rate in the 70s / 80s on EKG. No ischemic changes. Given metoprolol 25 mg PO. Labs were unactionable. CT of the head was unremarkable. CT of the L spine showed T12 and L2 acute compression / superior endplate fractures. Neurologically intact. Also shows acute inferior pubic rami fracture - patient has been ambulatory. CT of the abdomen showed multiple findings including constipation as well as chronic findings. Will place on bowel regimen. Spoke to Dr. Israel who will accept the patient for admission for new onset atrial fibrillation, frequent falls, pain control and likely placement. Daughter is in agreement with plan. Above note per ER physician. Of note patient has become extremely and progressively demented over the past several months, she has been living with her daughter and has had increasing problems with activities of daily living. Patient has been on maximal available dementia medications but continues to rapidly progress and has had weight loss, problems with ataxia and multiple falls as noted above. [facility] History I have reviewed the patient's past medical history: Yes Medical History: Reports:: Cancer (Breast), Depression, Diabetes Mellitus Type 1, Diabetes Mellitus Type 2, Gastroesophageal Reflux Disease(GERD), Hyperlipidemia, Hypertension Denies:: Atrial Fibrillation, MRSA *Have you ever received a pneumonia vaccine?: Yes *Have you received a flu vaccine this season?: Yes Other Medical History: Reports: Other Laterality Cases: Left: Mastectomy Other Surgeries: Yes: Colon Resection, Hysterectomy-Total Amputation: No Fractures: No - *Social History Last grade of school completed: GED Smoking Status: Never smoker Alcohol Intake: never Alcohol Intake Frequency:: other Substance Use Type: denies use *Occupational Status:: retired Housing: house Household Members: children *Travel in the last 8 weeks: None - Psychiatric History Pschychiatric History:: Reports:: Depression Family Hx:: Cancer, Stroke Review of Systems - Review of Systems Review of systems:: unable to obtain . Patient is extremely demented. Denies pain, denies breathing problems, states she feels good. Meds Home Medications Medication Instructions Recorded Confirmed Type Aspirin [Aspirin 81mg EC Tab] 81 mg PO DAILY 07/24/17 03/18/20 History Atorvastatin Calcium [Lipitor 80mg 80 mg PO DAILY 10/21/17 03/18/20 History Tab] Donepezil HCl [Aricept 10mg 10 mg PO HS 10/21/17 03/18/20 History tablet] Memantine HCl 10 mg PO BID 10/21/17 03/18/20 History Metformin HCl 500 mg PO DAILY 02/03/19 03/18/20 History carvediloL [Carvedilol 25mg Tab] 25 mg PO BID 02/03/19 03/18/20 History buspirone 5 mg tablet 5 mg PO BID tab 07/17/19 03/18/20 History famotidine 20 mg tablet 20 mg PO DAILY tab 07/17/19 03/18/20 History lisinopril 10 mg tablet 10 mg PO DAILY tab 07/17/19 03/18/20 History olanzapine 5 mg tablet 5 mg PO DAILY tab 07/17/19 03/18/20 History primidone 50 mg tablet 50 mg PO DAILY tab 07/17/19 03/18/20 History Allergies Allergy/AdvReac Type Severity Reaction Status Date / Time propoxyphene [From DARV
--- NOTE | 2020-03-19 10:29 | HMH.PHAINT ---
MEDICATION RECONCILIATION COMPLETED ON PATIENT USING EXTERNAL FILL HISTORY FROM [facility]. -TIM KELLERD
--- NOTE | 2020-03-19 10:30 | HMH.OTEV ---
OT Inpatient Evaluation Rehab OT IP Evaluation Start: 03/19/20 08:55 Freq: ONCE Status: Complete Protocol: Document 03/19/20 10:04 FREDERICK (Rec: 03/19/20 10:09 FREDERICK [id number]) Rehab OT IP Assessment Subjective History 75 year old female brought to ER on 03/18/20 by daughter due to weakness and frequent falls at home. Reports stated Patient lives with daughter and the daughter verbalize patient deconditioning with needing more assistance at home and resulting in recurrent falls. Patient unable to provide accurate prior level of hx. Findings were: T12 adn L2 acute compression/superior endplate fracture, acute inferior pubic rami fx. Current dx: senile dementia, compression fx, fall , a-fib and type 2 DM. Subjective Patient verbalize repetitive words when attempting to answer questions. A sequence of 3-4 words at a time. stand up, stand up, stand up. My daughter, my daughter, my daughter. My left side, my left side, my left side. Objective Patient Orientation Person Upper Extremity Gross ROM WFL Transfer Training Sit/Stand Transfer Assist Level Maximum x 1 (75% assist) Chair Transfer Ability Maximum x 1 (75% assist) Chair Transfer Technique Sit to/from Ambulatory Chair Transfer Assistive Devices Rolling Walker Lower Body Dressing Ability Unable/Dependant Upper Body Dressing Ability Maximum Assistance Performing Toilet Hygiene Ability Unable/Dependant Overall Commode/Toilet Transfer Ability Total Dependance decrease in endurance Yes Rehab OT IP prob,goals,plan Problems Date of Evaluation: 03/19/20 OT IP Problems Bed Mobility,Transfers,Balance ,Self care,Safety Rehab Potential Rehab Potential Good Equipment Needs Assistive Devices Rolling / Wheeled Walker Plan OT intervention Plan Bed Mobility,Transfers,Balance ,Self care,Therapeutic Exercise OT Plan Freque
--- NOTE | 2020-03-19 10:32 | PC.NURSE ---
ATTEMPTED TO CONTACT DAUGHTER TO INQUIRE ABOUT BRINGING HOME MEDICATIONS TO [facility]. NO ONE, WILL CONTINUE TO CONTACT DAUGHTER
--- NOTE | 2020-03-19 11:23 | HMH.PTEV ---
Physical Therapy Evaluation Rehab PT IP Evaluation Start: 03/19/20 08:55 Freq: ONCE Status: Active Protocol: Document 03/19/20 11:17 PHORNE (Rec: 03/19/20 11:22 PHORNE [id number]) Subjective/History History History 75 yowf adm to [facility] with frequent falls at home and worsening dementia. CT scan shows T12 and L2 acute compression fxs and R inf pubic rami fx. She lives with daughter at baseline. Subjective Subjective Pt c/o pain in R ant hip area with ambulation. Rehab PT IP Eval Objective Appearance Patient Behavior Appropriate,Confused Patient Orientation Person,Birthday Difficulty following instructions none Speech Pattern Soft-Spoken Ambulation Patient Able to Ambulate Yes Ambulation Observation IP General Gait Pattern Observation Shuffling Step Ambulation Distance (feet) 15 Ambulation Assistive Device None Ambulation Ability Moderate x 1 (50% assist) Balance Ability to Arise Able, uses arms to help Sitting Balance Leans or slides in chair Standing Balance Unsteady Dynamic Sitting Balance Ability Fair Dynamic Standing Balance Ability Poor Transfers Bed Transfer Ability Minimal x 1 (25% assist) Chair Transfer Ability Minimal x 1 (25% assist) Sit to Stand Bed Transfer Ability Minimal x 1 (25% assist) Sit to Stand Chair Transfer Ability Minimal x 1 (25% assist) ROM All Extremities PT ROM Status WFL MMT All Extremities PT MMT WFL Rehab PT IP prob,goals,plan Problems Date of Evaluation: 03/19/20 PT IP Problems Bed Mobility,Transfers,Gait, Balance,Self care Rehab Potential Rehab Potential Fair Equipment Needs Assistive Devices Rolling / Wheeled Walker Plan PT Intervention Plan Bed Mobility,Transfers,Gait, Balance,Therapeutic Exercise PT Plan Frequency BID Duration LOS Discharge Goals Bed Transfer Ability Contact Guard/Hand Hold Sit to Stand Chair Transfer Ability Minimal x 1 (25% assist) Ambulation Assistive Device Rolling Walker Ambulation Distance (feet) 20 Discharge Plan PT Discharge Plan Pt is most appropriate for SNF placement due to increased dementia, poor balance, and difficulty with ambulation resulting in significant
--- NOTE | 2020-03-19 12:23 | SW/DCPLANNER ---
Addendum entered by Pippa Munroe 03/19/20 15:22: I have informed patients daughter (Ketty) that COVID results should be back between 4PM-5PM. I have also inform Janeth Lionel and she is agreeable with plan. Patient will discharge via family car once NEGATIVE COVID results are back. I have made patients nurse (Tommy) aware of plan as well. Addendum entered by Pippa Munroe 03/19/20 13:07: Per Janeth Flowers at [facility] she is offering this patient a bed pending NEGATIVE COVID. Janeth has stated that she can come under Medicare benefit. Patients daughter agrees with plan and agrees to transport this patient once ready for discharge. Dr Conde is aware of plan and states patient will be ready for discharge today. I will keep daughter up to date once COVID results are back. Patient information will be faxed to [facility] once available in computer. Original Note: Patient information has been faxed to Janeth Flowers at [facility] for SNF level of care. Patients family agree with this plan. I will follow up with patients family once information is reviewed by
--- NOTE | 2020-03-19 13:48 | HMH.DCSUM ---
General - General Admission date:: 03/19/20 Discharge date: 03/19/20 HPI HPI: The patient is a 75 year old female with a history of HTN, DM, dementia who presents with her daughter for generalized weakness, frequent falls. Patient is awake, alert. Can answer questions appropriately. On exam patient does have some left sided abdominal pain and CVA tenderness on the left. No midline lumbar pain. Neurovascularly intact. As far as her abdominal pain and acute on chronic back pain will order UA, CT abdomen/pelvis and L-spine CT. For her frequent falls, EKG was obtained as well as troponins, CBC, CMP, magnesium, TSH. EKG shows afib with RVR with rates in the 140s. No history of afib per daughter. Unsure of onset. Given 5 mg metoprolol IV - patient converted to NSR with a rate in the 70s / 80s on EKG. No ischemic changes. Given metoprolol 25 mg PO. Labs were unactionable. CT of the head was unremarkable. CT of the L spine showed T12 and L2 acute compression / superior endplate fractures. Neurologically intact. Also shows acute inferior pubic rami fracture - patient has been ambulatory. CT of the abdomen showed multiple findings including constipation as well as chronic findings. Will place on bowel regimen. Spoke to Dr. Israel who will accept the patient for admission for new onset atrial fibrillation, frequent falls, pain control and likely placement. Daughter is in agreement with plan. Above note per ER physician. Of note patient has become extremely and progressively demented over the past several months, she has been living with her daughter and has had increasing problems with activities of daily living. Patient has been on maximal available dementia medications but continues to rapidly progress and has had weight loss, problems with ataxia and multiple falls as noted above. Hospital Course Hospital Course: Patient was admitted, she remained in sinus rhythm with good rate control. Given her fracture characteristics it was determined that nonoperative intervention-i.e. referral to long-term care for physical therapy for nonoperative healing of her fractures was indicated. I had a long talk with her daughter this morning about her overall prognosis which is extremely poor given her weight loss, terminal dementia and increasing behavioral disturbances at home. She elected to pursue long-term care transfer, and also elected to pursue DNR status which we will respect. I agree with this decision. Mentioned hospice care, she at this point will try physical therapy to see how improvement will go but certainly hospice is a reasonable alternative if therapy plateaus or if she becomes less than ideal physical therapy candidate in the future. Plan number to transfer to the [facility] today with ongoing metoprolol, pain control and nursing care. She will need PT/OT/dietary consultation. Objective Vital signs: Temp Pulse Resp BP Pulse Ox 98.1 F 71 18 123/41 L 95 03/19/20 11:59 03/19/20 12:00 03/19/20 11:59 03/19/20 11:59 03/19/20 11:59 no acute distress, thin - *Routine HEENT Exam Head: Present: normocephalic Eye: Present: EOMI, PERRL ENT: Present: mucous membranes moist - *Routine Neck Exam Present: supple - *Routine Respiratory Exam Present: CTA bilaterally - *Routine Cardiovascular Exam Present: RRR, murmur - *Routine Abdominal Exam Present: soft, normoactive bowel sounds. Absent: tenderness - *Routine Extremities Exam Absent: cyanosis, clubbing, edema Comments: Pain with moving lower extremities secondary to vertebral fracture. Significant pain with hip rotation from pubic ramus fracture. No distal pulse deficits, extremities are warm and without edema. - *Routine Skin Exam Present: warm. Absent: rash - *Routine Neurological Exam Present: alert Oriented times person only, pleasant and conversant but extremely demented. Results Labs on day of discharge: Labs from last 24
--- NOTE | 2020-03-19 16:27 | PC.NURSE ---
REPORT GIVEN TO VJ SANTANA FROM [facility] AT [id number]
== END 2020-03-19 17:15 ==
LOC: ER 20:11 → 2ND 23:43
PROVIDERS: Admitting Provider Internal Medicine Adolescent Medicine; Emergency Provider Emergency Medicine; PCP Internal Medicine Adolescent Medicine; Visit Provider Internal Medicine Adolescent Medicine
DX: S22.080A Wedge compression fracture of T11-T12 vertebra, initial encounter for closed fracture (principal); S32.010A Wedge compression fracture of first lumbar vertebra, initial encounter for closed fracture; S32.020A Wedge compression fracture of second lumbar vertebra, initial encounter for closed fracture; W19.XXXA Unspecified fall, initial encounter; Z91.81 History of falling; I48.91 Unspecified atrial fibrillation; I10 Essential (primary) hypertension; E11.9 Type 2 diabetes mellitus without complications; Z88.2 Allergy status to sulfonamides; Z88.8 Allergy status to other drugs, medicaments and biological substances; Z79.899 Other long term (current) drug therapy; Z79.84 Long term (current) use of oral hypoglycemic drugs; S32.591A Other specified fracture of right pubis, initial encounter for closed fracture; R50.9 Fever, unspecified
CPT/HCPCS: 36415; 70450; 71045; 72131; 74177; 80048; 80053; 81001; 83735; 84443; 84484; 85025; 85610; 86328; 93005; 96374; 97110; 97162; 97165; 97530; 99284; G0378; Q9967; U0003

== ENCOUNTER → 2020-04-30 12:58 | Outpatient (CLI) | payer MEDICARE, OTHER, SELFPAY ==
--- NOTE | 2020-04-30 13:03 | CA_ITS ---
APPROVED REPORT EXAM: Comprehensive 2D, Doppler, and color-flow Echocardiogram [employer]: Shraddha Farrell RDCS Ht: 5 ft 5 in Wt: 114lbs BSA: 1.56 BP: 153/68 mmHg Indications: MURMUR,DM,HTN,HLP,H/O AF 2D Dimensions LVOT 1.71 cm (M/F) 1.5-2.5 M-Mode Dimensions RVDd 2.06 cm (0.9-2.6) LA Diam 2.45 cm (1.9-4.0) LVDd 4.12 cm (3.5-5.7) Ao Diam 3.14 cm (2.0-3.7) LVDs 2.81 cm (3.5-5.7) IVSd 0.94 cm (0.6-1.1) PWd 0.69 cm (0.6-1.1) EF (Teich) 60.30% FS 31.80% EDV (Teich) 75.10 mL ESV (Teich) 29.80 mL LV Diastology E Decel Time 223.00 (160-240 msec) E/A Ratio 0.8 MED E' 5.40 (< 7 cm/sec) E'/MED E' Ratio 12.31 (>14) LAT E' 5.70 (<10 cm/sec) E/LAT E' Ratio 11.67 (>14) Aortic Valve LVOT Max 92.00 (70-110 cm/s) LVOT VTI 24.33 cm AoV Peak Salvatore. 212.00 (50-130 cm/s) AO Peak GR. 18.00 mmHg AO Mean GR. 10.90 (<5 mmHg) AO VTI 42.87 (18-25 cm) ALFREDO (VTI) 1.30 (2.5-4.5 cm2) Mitral Valve MV E Max Salvatore. 66.00 (40-130 cm/s) MV A Velocity 82.00 (40-130 cm/s) E/A Ratio 0.81 MV Decel. Time 223.00 (160-240 ms) MV PHT 65.00 ms Tricuspid Valve TR P. Velocity 258.00 cm/s RAP Estimate 10.00 mmHg RVSP 36.60 mmHg Left Ventricle Technically difficult study because of the patient factors and poor acoustic windows. Left atrium is mildly enlarged, left ventricle is normal size, mild concentric left ventricular hypertrophy, visually estimated ejection fraction 55% with no regional wall motion abnormality. Grade 1 diastolic dysfunction seen without tissue Doppler evidence of raise left atrial pressure. Right Ventricle Right atrium and right ventricle are normal size and contractility. Aortic Valve Aortic valve is thickened and calcified without Doppler evidence of significant aortic stenosis or aortic insufficiency. Mitral Valve Mitral valve has mild mitral calcification, there is no mitral stenosis, there is mild mitral regurgitation. Tricuspid Valve Tricuspid valve is grossly normal, there is mild tricuspid regurgitation, tricuspid regurgitation jet velocity is inadequate for calculation of the right ventricular systolic pressure. Pulmonic Valve Pulmonic valve is poorly visualized. Great Vessels Aortic root is normal size. Pericardium No significant pericardial effusion noted. Conclusion 1. Technically difficult study because of the patient fact in poor acoustic windows. 2. Mildly enlarged left atrium, normal left ventricular size, mild concentric left ventricular hypertrophy, visually estimated ejection fraction 55% with no regional wall motion abnormality, grade 1 diastolic dysfunction seen without tissue Doppler evidence of raise left atrial pressure. 3. Thickened and calcified aortic valve without Doppler evidence of aortic stenosis or aortic insufficiency. 4. Mild mitral and tricuspid regurgitation. 5. No significant pericardial effusion noted. Electronically signed by : Anson Arellano, 05/04/2020 06:18:40
== END ==
PROVIDERS: PCP Internal Medicine Adolescent Medicine; Visit Provider Nurse Practitioner Family
DX: R01.1 Cardiac murmur, unspecified (principal); R94.31 Abnormal electrocardiogram [ECG] [EKG]
CPT/HCPCS: 93306

== ENCOUNTER → 2020-07-26 11:12 | Outpatient (CLI) | payer MEDICARE, OTHER, SELFPAY ==
[2020-07-26 11:34] LABS: Basophils % 0.7 % (0.1-2.0); Eosinophils % 0.8 % (0.1-12.0); Hematocrit 35.2 % (37.0-47.0); Hemoglobin 10.1 g/dL (12.2-16.2); Lymphocytes # 1.5 K/mm3 (0.7-4.5); Lymphocytes % 29.2 % (10-50); Mean Corpuscular HGB Conc 28.8 g/dL (31.8-35.4); Mean Corpuscular Hemoglobin 23.1 pg (27.0-31.2); Mean Corpuscular Volume 80.3 fl (81-99); Mean Platelet Volume 6.9 fl (7.4-10.4); Monocytes # 0.3 K/mm3 (0.1-1.0); Monocytes % 5.7 % (1.7-9.3); Neutrophils # 3.1 K/mm3 (1.8-7.8); Neutrophils % 63.5 % (37.0-80.0); Platelet Count 232 K/mm3 (142-424); Red Blood Count 4.38 M/mm3 (4.20-5.40); Red Cell Distribution Width 15.2 % (11.5-17.5); White Blood Count 4.9 K/mm3 (4.8-10.8)
[2020-07-26 11:55] LABS: Alanine Aminotransferase 20 U/L (12-78); Albumin Level 4.1 g/dl (3.5-5.0); Albumin/Globulin Ratio 1.4 (1.1-1.8); Alkaline Phosphatase 84 U/L (38-126); Anion Gap 7.9 mEq/L (5-15); Aspartate Amino Transferase 23 U/L (14-36); Bilirubin,Total 0.3 mg/dl (0.2-1.3); Blood Urea Nitrogen 21 mg/dl (7-17); Calcium 9.4 mg/dl (8.4-10.2); Carbon Dioxide 31 mmol/L (22.0-30.0); Chloride 105 mmol/L (98-107); Chol/HDL Ratio 3.3 (1-3.5); Cholesterol 209 mg/dl (140-200); Estimated Glomerular Filt Rate 97 ml/min (>60); GFR (African American) 117 ML/MIN (>60); Globulin 2.9 g/dL (1.3-3.2); Glucose 105 mg/dl (74-100); HDL Cholesterol 63 mg/dl (40-60); Potassium 3.9 mmoL/L (3.5-5.1); Sodium 140 mmol/L (136-145); Triglycerides 89 mg/dl (30-150); VLDL Cholesterol 18 mg/dL (0-40)
[2020-07-26 12:06] LABS: Direct LDL Cholesterol 110.75 mg/dL (100-129)
== END ==
PROVIDERS: Visit Provider Internal Medicine Adolescent Medicine
DX: I10 Essential (primary) hypertension (principal); E78.5 Hyperlipidemia, unspecified
CPT/HCPCS: 36415; 80053; 80061; 85025

== ENCOUNTER → 2021-02-11 12:51 | Outpatient (CLI) | payer MEDICARE, OTHER, SELFPAY ==
[2021-02-11 13:32] LABS: Basophils % 0.6 % (0.1-2.0); Eosinophils % 0.4 % (0.1-12.0); Hematocrit 41.5 % (37.0-47.0); Hemoglobin 13.1 g/dL (12.2-16.2); Lymphocytes # 1.4 K/mm3 (0.7-4.5); Lymphocytes % 27.3 % (10-50); Mean Corpuscular HGB Conc 31.6 g/dL (31.8-35.4); Mean Corpuscular Hemoglobin 29.1 pg (27.0-31.2); Mean Corpuscular Volume 91.9 fl (81-99); Mean Platelet Volume 7.7 fl (7.4-10.4); Monocytes # 0.3 K/mm3 (0.1-1.0); Monocytes % 5.7 % (1.7-9.3); Neutrophils # 3.3 K/mm3 (1.8-7.8); Neutrophils % 65.9 % (37.0-80.0); Platelet Count 254 K/mm3 (142-424); Red Blood Count 4.52 M/mm3 (4.20-5.40); Red Cell Distribution Width 14.1 % (11.5-17.5)
[2021-02-11 13:46] LABS: Hemoglobin A1C 5.6 % (4.0-6.0)
[2021-02-11 14:13] LABS: Chloride 98 mmol/L (98-107); Potassium 4.5 mmoL/L (3.5-5.1); Sodium 137 mmol/L (136-145)
[2021-02-11 14:16] LABS: Alanine Aminotransferase 32 U/L (12-78); Albumin Level 4.4 g/dl (3.5-5.0); Albumin/Globulin Ratio 1.7 (1.1-1.8); Alkaline Phosphatase 72 U/L (38-126); Anion Gap 13.5 mEq/L (5-15); Aspartate Amino Transferase 34 U/L (14-36); Blood Urea Nitrogen 21 mg/dl (7-17); Calcium 9.5 mg/dl (8.4-10.2); Carbon Dioxide 30 mmol/L (22.0-30.0); Estimated Glomerular Filt Rate 81 ml/min (>60); GFR (African American) 98 ML/MIN (>60); Globulin 2.6 g/dL (1.3-3.2); Glucose 91 mg/dl (74-100)
[2021-02-11 14:21] LABS: Bilirubin,Total < 0.1 mg/dl (0.2-1.3)
== END ==
PROVIDERS: Visit Provider Internal Medicine Adolescent Medicine
DX: E11.9 Type 2 diabetes mellitus without complications (principal); I10 Essential (primary) hypertension
CPT/HCPCS: 36415; 80053; 83036; 85025

== ENCOUNTER → 2021-03-25 10:29 | Outpatient (CLI) | payer MEDICARE, OTHER, SELFPAY | PROVIDERS: PCP Internal Medicine Adolescent Medicine; Visit Provider Nurse Practitioner | DX: Z20.822 Contact with and (suspected) exposure to COVID-19 (principal) | CPT/HCPCS: C9803; U0003; U0005 ==

== ENCOUNTER 2021-04-05 15:44 | Emergency (ER) | payer MEDICARE, OTHER, SELFPAY ==
[2021-04-05 16:13] VITALS: BP 145/93; PULSE 70; RESP 16; TEMP 36.8; O2SAT 95; BMI 20.1
[2021-04-05 16:32] LABS: Adenovirus,PCR Not Detected (NotDetected); Bordetella Pertussis Not Detected (NotDetected); Chlamydophila Pneumoniae, PCR Not Detected (NotDetected); Coronavirus 19, PCR Not Detected (NotDetected); Coronavirus 229E Not Detected (NotDetected); Coronavirus NL63 Not Detected (NotDetected); Coronavirus OC43 Not Detected (NotDetected); Coronovirus HKU1,PCR Not Detected (NotDetected); Human Metapneumovirus Not Detected (NotDetected); Influenza A, PCR Not Detected (NotDetected); Influenza AH1, 2009 Not Detected (NotDetected); Influenza AH1, PCR Not Detected (NotDetected); Influenza AH3,PCR Not Detected (NotDetected); Influenza B, PCR Not Detected (NotDetected); Mycoplasma Pneumoniae, PCR Not Detected (NotDetected); Parainfluenza 1, PCR Not Detected (NotDetected); Parainfluenza 2, PCR Not Detected (NotDetected); Parainfluenza 3, PCR Not Detected (NotDetected); Respiratory Syncytial Virus Not Detected (NotDetected); Rhinovirus/Enterovirus Not Detected (NotDetected)
--- NOTE | 2021-04-05 16:48 | HMH.EDUTC ---
[facility] [place]position Clinical Impression: Bronchitis Sinusitis Qualifiers: Sinusitis location: unspecified location Chronicity: acute Recurrence: non-recurrent Qualified Code(s): J01.90 - Acute sinusitis, unspecified Disposition: Home, Self-Care Condition on Discharge: Good Instructions: Sinusitis, DI for Acute Bronchitis Additional Instructions: Drink plenty of fluids. Take tylenol or ibuprofen for pain or fever. Take the medications as directed. Follow up with your regular doctor. GO TO THE ER FOR ANY WORSENING SYMPTOMS Prescriptions: Benzonatate [Tessalon Perle 100mg Cap] 100 mg PO TIDP PRN #30 cap PRN Reason: Cough Transmission Status: Received by [id number] Azithromycin [Z-Darek 250mg Tab*] 250 mg PO UD DOSE PK #6 tab Transmission Status: Received by [id number] Referrals: Jonathon Israel MD [Primary Care Provider] - Time of Disposition: 18:21 Medical Decision Making - Medical Records Medical records reviewed: No: I reviewed the patient's medical records. - Heladio Inquiry Pt receiving controlled substance: No Vital Signs: 04/05/21 16:13 04/05/21 18:16 Temperature 98.2 F 98.2 F Temperature Source Oral Pulse Rate 70 Pulse Rate [Left] 70 Respiratory Rate 16 16 Blood Pressure 145/93 H Blood Pressure [Right Arm] 145/93 H Blood Pressure Mean [Right Arm] 110 02 Sat by Pulse Oximetry 95 - Lab Data Lab Results 04/05/21 16:20: Chlamy pneumoniae PCR Not detected, Adenovirus (PCR) Not detected, B. pertussis DNA (PCR) Not detected, Coronavirus OC43 (PCR) Not detected, Coronavirus HKU1 (PCR) Not detected, Coronavirus 229E (PCR) Not detected, SARS-CoV-2 (PCR) Not detected, Coronavirus NL63 (PCR) Not detected, Human Metapneumovir PCR Not detected, Influenza A (H1) PCR Not detected, Influ A (H1N1/09) PCR Not detected, Influenza A (H3) PCR Not detected, Influenza Type A (PCR) Not detected, Influenza Type B (PCR) Not detected, M. pneumoniae (PCR) Not detected, Parainfluenza 1 (PCR) Not detected, Parainfluenza 2 (PCR) Not detected, Parainfluenza 3 (PCR) Not detected, Parainfluenza 4 (PCR) Detected A, RSV (PCR) Not detected, Entero/Rhino (PCR) Not detected - Radiology Data #1 Image(s): Chest Image Reviewed: Yes I reviewed the patient's radiology image, Yes I have reviewed radiologist's interpretation Preliminary Findings: Normal/NAD, No Infiltrates Seen PROCEDURE INFORMATION: Exam: XR Chest Exam date and time: 04/05/2021 4:53 PM Age: 76 years old Clinical indication: Patient HX: Cough, congestion TECHNIQUE: Imaging protocol: XR of the chest. Views: 2 views. COMPARISON: CR XR CHEST PORTABLE 03/18/2020 9:40 PM FINDINGS: Lungs: Unremarkable. No consolidation. Pleural spaces: Unremarkable. No pleural effusion. No pneumothorax. Heart/Mediastinum: Unremarkable. No cardiomegaly. Bones/joints: Unremarkable. IMPRESSION: No acute findings. [facility] [place] HPI - General Stated complaint: cough,runny nose,weak Time Seen by Provider: 04/05/21 16:48 Mode of Arrival: Ambulatory Source of Information: Patient Limitations: No Limitations Description of Symptoms (Recalled from Triage Doc. by RN): pt has had a cough and weakness for about a week. pt had a negative covid swab last week but isn't feeling any better. HEENT Symptoms (Recalled from RN notes): No Resp Symptoms (Recalled from RN notes): Yes (cough) Skin Symptoms (Recalled from RN notes): No MS Symptoms (Recalled from RN notes): No Functional Status (Recalled from RN notes): weakness - History of Present Illness Provider Complaint: Her daughter states that the patient has a history of demetia. For the past 2 days she has been coughing and congested in her chest and her sinuses. - Related Data Home Medications Medication Instructions Recorded Confirmed Aspirin [Aspirin 81mg EC Tab] 81 mg PO DAILY 07/24/17
--- NOTE | 2021-04-05 16:53 | XR_ITS ---
PROCEDURE INFORMATION: Exam: XR Chest Exam date and time: 04/05/2021 4:53 PM Age: 76 years old Clinical indication: Patient HX: Cough, congestion TECHNIQUE: Imaging protocol: XR of the chest. Views: 2 views. COMPARISON: CR XR CHEST PORTABLE 03/18/2020 9:40 PM FINDINGS: Lungs: Unremarkable. No consolidation. Pleural spaces: Unremarkable. No pleural effusion. No pneumothorax. Heart/Mediastinum: Unremarkable. No cardiomegaly. Bones/joints: Unremarkable. IMPRESSION: No acute findings.
[2021-04-05 18:16] VITALS: BP 145/93; PULSE 70; RESP 16; TEMP 36.8
[2021-04-05 20:14] LABS: Parainfluenza 4, PCR Detected (NotDetected)
== END 2021-04-05 18:17 | disposition home or self-care (01) ==
PROVIDERS: Emergency Provider Nurse Practitioner Family; PCP Internal Medicine Adolescent Medicine
DX: J01.90 Acute sinusitis, unspecified (principal); Z88.2 Allergy status to sulfonamides
CPT/HCPCS: G0463; 71046; 87581; 87632; 87798; 99202; C9803; U0003; U0005

== ENCOUNTER 2021-05-21 06:35 | Emergency (ER) | payer MEDICARE, OTHER, SELFPAY ==
[2021-05-21 06:36] VITALS: BP 180/84; PULSE 61; RESP 16; TEMP 36.6; O2SAT 99; BMI 29.2
--- NOTE | 2021-05-21 06:54 | ECG_ITS ---
APPROVED REPORT Exam: Resting ECG HR:54 bpm ECG Measurements Heart Rate 54 AXES LA 186 P 56 QRSd 140 QRS -5 QT 496 T 142 QTc 470 Conclusion Sinus bradycardia Left bundle branch block Abnormal ECG Electronically signed by : Don Conde MD 05/22/2021 09:04:31
--- NOTE | 2021-05-21 06:56 | XR_ITS ---
PROCEDURE INFORMATION: Exam: XR Chest Exam date and time: 05/21/2021 6:56 AM Age: 76 years old Clinical indication: Other: Hypertension; Patient HX: Elevated BP TECHNIQUE: Imaging protocol: XR of the chest. Views: 1 view. COMPARISON: CR XR CHEST 2V 04/05/2021 5:37 PM FINDINGS: Lungs: No focal airspace disease. Calcified right upper lobe granuloma. Pleural spaces: Unremarkable. No pleural effusion. No pneumothorax. Heart/Mediastinum: Cardiomediastinal silhouette is within normal limits. Bones/joints: Unremarkable. IMPRESSION: No acute cardiopulmonary abnormality.
[2021-05-21 07:06] LABS: Basophils % 0.7 % (0.1-2.0); Eosinophils # 0.1 K/mm3 (0.0-0.4); Eosinophils % 0.9 % (0.1-12.0); Hematocrit 41.4 % (37.0-47.0); Hemoglobin 13.4 g/dL (12.2-16.2); Lymphocytes # 1.8 K/mm3 (0.7-4.5); Lymphocytes % 31.8 % (10-50); Mean Corpuscular HGB Conc 32.3 g/dL (31.8-35.4); Mean Corpuscular Volume 92.9 fl (81-99); Mean Platelet Volume 7.9 fl (7.4-10.4); Monocytes # 0.3 K/mm3 (0.1-1.0); Monocytes % 5.9 % (1.7-9.3); Neutrophils # 3.4 K/mm3 (1.8-7.8); Neutrophils % 60.7 % (37.0-80.0); Platelet Count 238 K/mm3 (142-424); Red Blood Count 4.45 M/mm3 (4.20-5.40); Red Cell Distribution Width 13.9 % (11.5-17.5); White Blood Count 5.5 K/mm3 (4.8-10.8)
[2021-05-21 07:14] LABS: Chloride 101 mmol/L (98-107); Sodium 141 mmol/L (136-145)
[2021-05-21 07:15] LABS: Potassium 4.3 mmoL/L (3.5-5.1)
[2021-05-21 07:17] LABS: Alanine Aminotransferase 31 U/L (12-78); Albumin Level 4.2 g/dl (3.5-5.0); Albumin/Globulin Ratio 1.6 (1.1-1.8); Alkaline Phosphatase 68 U/L (38-126); Anion Gap 9.3 mEq/L (5-15); Aspartate Amino Transferase 40 U/L (14-36); Bilirubin,Total 0.2 mg/dl (0.2-1.3); Blood Urea Nitrogen 17 mg/dl (7-17); Carbon Dioxide 35 mmol/L (22.0-30.0); Creatinine Clearance Estimated 53 mL/min (50-200); Estimated Glomerular Filt Rate 81 ml/min (>60); GFR (African American) 98 ML/MIN (>60); Globulin 2.7 g/dL (1.3-3.2); Total Protein,Serum 6.9 g/dl (6.3-8.2)
[2021-05-21 07:18] LABS: Calcium 9.4 mg/dl (8.4-10.2); Glucose 105 mg/dl (74-100)
[2021-05-21 07:23] LABS: C-Reactive Protein 0.5 mg/L (0-4)
[2021-05-21 07:30] VITALS: BP 171/62; PULSE 55; RESP 14; O2SAT 97
[2021-05-21 07:34] LABS: Troponin I < 0.01 ng/ml (0.00-0.034)
[2021-05-21 07:37] LABS: Erythrocyte Sedimentation Rate 8 mm/hr (0-30)
[2021-05-21 07:39] LABS: Procalcitonin 0.058 ng/mL (0.0-2.0)
[2021-05-21 08:00] VITALS: BP 176/68; PULSE 50; RESP 14; O2SAT 95
[2021-05-21 08:29] VITALS: BP 167/81; PULSE 51; O2SAT 96
--- NOTE | 2021-05-21 08:36 | HMH.EDGENADL ---
ED Disposition Clinical Impression: Hypertension Qualifiers: Hypertension type: primary hypertension Qualified Code(s): I10 - Essential (primary) hypertension Disposition: Home Health Service Condition on Discharge: Good Instructions: Essential Hypertension Referrals: Jonathon Israel MD [Primary Care Provider] - - Critical Care Critical Care Time: No Attestation: On 05/21/21, the high probability of a clinically significant, sudden or life threatening deterioration of the following system(s) required my full and direct attention, intervention and personal management. The time I documented below is in addition to time spent performing reported procedures but includes the following listed in this critical care notation. Medical Decision Making - Medical Records Medical records reviewed: Yes: I reviewed the patient's medical records. - Heladio Inquiry Pt receiving controlled substance: No Vital Signs: 05/21/21 06:36 05/21/21 07:30 05/21/21 08:00 Temperature 97.8 F Temperature Source Oral Pulse Rate 55 L 50 L Pulse Rate [Right] 61 Respiratory Rate 16 14 14 Blood Pressure 171/62 H 176/68 H Blood Pressure [Right Arm] 180/84 H Blood Pressure Mean 98 104 Blood Pressure Mean [Right Arm] 116 Blood Pressure Source [Right Arm] Manual Cuff/ Auscultation 02 Sat by Pulse Oximetry 99 97 95 05/21/21 08:29 Temperature Temperature Source Pulse Rate 51 L Pulse Rate [Right] Respiratory Rate Blood Pressure 167/81 H Blood Pressure [Right Arm] Blood Pressure Mean Blood Pressure Mean [Right Arm] Blood Pressure Source [Right Arm] 02 Sat by Pulse Oximetry 96 - Lab Data Lab Results 05/21/21 06:56: WBC 5.5, RBC 4.45, Hgb 13.4, Hct 41.4, MCV 92.9, MCH 30.0, MCHC 32.3, RDW 13.9, Plt Count 238, MPV 7.9, Neut % (Auto) 60.7, Lymph % (Auto) 31.8, [place] % (Auto) 5.9, Eos % (Auto) 0.9, Baso % (Auto) 0.7, Neut # (Auto) 3.4, Lymph # (Auto) 1.8, [place] # (Auto) 0.3, Eos # (Auto) 0.1, Baso # (Auto) 0.0, ESR 8 05/21/21 06:56: Sodium 141, Potassium 4.3, Chloride 101, Carbon Dioxide 35 H, Anion Gap 9.3, BUN 17, Creatinine 0.70, Estimated Creat Clear 53, Estimated GFR 81, Est GFR ( Amer) 98, Glucose 105 H, Calcium 9.4, Total Bilirubin 0.2, AST 40 H, ALT 31, Alkaline Phosphatase 68, Troponin I < 0.01, C-Reactive Protein 0.5, Total Protein 6.9, Albumin 4.2, Globulin 2.7, Albumin/Globulin Ratio 1.6, Procalcitonin 0.058 Result diagrams: 05/21/21 06:56 05/21/21 06:56 Orders (Tests/Meds): ED MEDICATIONS Discontinued Medications Generic Name Dose Route Start Last Admin Trade Name Freq PRN Reason Stop Dose Admin Hydralazine HCl 10 mg 05/21/21 08:42 05/21/21 08:55 Hydralazine 20mg/Ml Vial IV 05/21/21 08:43 10 mg ONCE ONE Administration ORDERS Category Date Time Status XR chest portable Stat Exams 05/21/21 06:56 Taken Troponin I Q3H Lab 05/21/21 10:00 Ordered Troponin I Q3H Lab 05/21/21 13:00 Ordered - Radiology Data #1 Image(s): Chest Image Reviewed: Yes I reviewed the patient's radiology results, Yes I reviewed the patient's radiology image, Yes I have reviewed radiologist's interpretation Preliminary Findings: Normal/NAD - Reevaluation(s) Time: 09:12 Reevaluation #1: On reevaluation, patient appears to be at her baseline. She was provided antihypertensive. She did not take her morning medicines. I did instruct the daughter to provide is when she gets home. Her laboratory studies are unremarkable. Needs to follow-up with her PCP in 48 hours of medication reconciliation. Given strict return precautions. Daughter verbalized understanding. Medical Decision Narrative: 76-year-old female presented to the emergency department with some elevated blood pressure. Patient is asymptomatic. Likely secondary to her current medication regimen. Over the last month they have cut her atenolol in half. Work-up initiated. General Adult HPI - General Chief complaint: Wea
[2021-05-21 09:00] VITALS: BP 183/63; PULSE 56; O2SAT 96
[2021-05-21 10:03] VITALS: BP 183/63; PULSE 56; RESP 14; TEMP 36.6; O2SAT 96
== END 2021-05-21 10:05 | disposition home health service (06) ==
PROVIDERS: Emergency Provider Emergency Medicine; PCP Internal Medicine Adolescent Medicine
DX: I16.0 Hypertensive urgency (principal); F03.90 Unspecified dementia, unspecified severity, without behavioral disturbance, psychotic disturbance, mood disturbance, and anxiety; K21.9 Gastro-esophageal reflux disease without esophagitis; E11.9 Type 2 diabetes mellitus without complications; E78.5 Hyperlipidemia, unspecified; Z90.12 Acquired absence of left breast and nipple
CPT/HCPCS: 71045; 80053; 84145; 84484; 85025; 85651; 86140; 93005; 96374; 99283

== ENCOUNTER → 2021-06-03 11:11 | Outpatient (CLI) | payer MEDICARE, OTHER, SELFPAY ==
--- NOTE | 2021-06-03 11:14 | CA_ITS ---
APPROVED REPORT EXAM: Comprehensive 2D, Doppler, and color-flow Echocardiogram [employer] Apprentice: Renae Lanier RVT Ht: 5 ft 5 in Wt: 111lbs BSA: 1.54 BP: 167/81 mmHg Indications: MURMUR,HTN,HLD,GERD,DEMENTIA,HX BREAST CA,DM 2D Dimensions IVSd 2.15 cm F: 0.6-1.0 LVEF (Visual) 82.80 % PWd 1.40 cm F: 0.6 - 1.0 LA Volume 32.40 mL LVDd 2.04 cm F: 3.9 - 5.3 LA Volume Index 21.03 mL/m2 (M/F) 16-34 LVDs 1.04 cm F: 2.2 - 3.5 LVOT 1.96 cm (M/F) 1.5-2.5 M-Mode Dimensions LA Diam 3.63 cm (1.9-4.0) Ao Diam 2.96 cm (2.0-3.7) TAPSE 2.14 (<1.7) LV Diastology E Decel Time 217.00 (160-240 msec) E/A Ratio 0.9 MED E' 5.40 (< 7 cm/sec) E'/MED E' Ratio 14.87 (>14) LAT E' 6.80 (<10 cm/sec) E/LAT E' Ratio 11.81 (>14) Aortic Valve LVOT Max 90.00 (70-110 cm/s) LVOT VTI 21.85 cm AoV Peak Salvatore. 200.00 (50-130 cm/s) AO Peak GR. 16.10 mmHg AO Mean GR. 9.10 (<5 mmHg) AO VTI 47.55 (18-25 cm) ALFREDO (VTI) 1.39 (2.5-4.5 cm2) Mitral Valve MV E Max Salvatore. 80.00 (40-130 cm/s) MV A Velocity 88.00 (40-130 cm/s) E/A Ratio 0.92 MV Decel. Time 217.00 (160-240 ms) MV PHT 63.00 ms Pulmonary Valve PV Peak Velocity 73.00 (50-150 cm/s) Tricuspid Valve TR P. Velocity 278.00 cm/s RAP Estimate 10.00 mmHg RVSP 41.00 mmHg Left Ventricle Left atrium is mildly enlarged, left ventricle is normal size, mild concentric left neck hypertrophy, visually estimated ejection fraction 55% with no regional wall motion abnormality, grade 1 diastolic dysfunction seen without tissue Doppler evidence of raise left atrial pressure. Right Ventricle Right atrium and right ventricle are normal size and contractility. Aortic Valve Aortic valve is thickened and calcified without Doppler evidence of aortic stenosis or aortic insufficiency. Mitral Valve Mitral valve grossly normal, there is trace mitral regurgitation. Tricuspid Valve Tricuspid valve grossly normal, there is trace tricuspid regurgitation, calculated right ventricular systolic pressure is 41 mmHg. Pulmonic Valve Pulmonic valve is poorly visualized. Great Vessels Aortic root is normal size. Inferior vena cava is normal size with normal inspiratory collapse. Pericardium No significant pericardial effusion noted. Conclusion 1. Mildly enlarged left atrium, normal left ventricular size, mild concentric left ventricular hypertrophy, visually estimated ejection fraction 55% with no regional wall motion abnormality, grade 1 diastolic dysfunction seen without tissue Doppler evidence of raise left atrial pressure. 2. Thickened and calcified aortic valve without aortic stenosis or aortic insufficiency. 3. Trace mitral and tricuspid regurgitation, calculated right ventricular systolic pressure is 41 mmHg. 4. No significant pericardial effusion noted. 5. Inferior vena cava is normal size with normal inspiratory collapse. Electronically signed by : Anson Arellano MD 06/03/2021 14:32:45
== END ==
PROVIDERS: PCP Internal Medicine Adolescent Medicine; Visit Provider Internal Medicine Adolescent Medicine
DX: I35.1 Nonrheumatic aortic (valve) insufficiency (principal)
CPT/HCPCS: 93306

== ENCOUNTER → 2021-06-28 17:47 | Outpatient (CLI) | payer MEDICARE, OTHER, SELFPAY | PROVIDERS: Visit Provider Nurse Practitioner | DX: Z20.822 Contact with and (suspected) exposure to COVID-19 (principal) | CPT/HCPCS: C9803; U0003; U0005 ==

== ENCOUNTER 2023-01-19 20:44 | Emergency (ER) | payer MEDICARE, OTHER, SELFPAY ==
[2023-01-19 20:45] VITALS: BP 149/67; PULSE 83; RESP 17; TEMP 36.7; O2SAT 96; BMI 18.5
--- NOTE | 2023-01-19 21:11 | PC.NURSE ---
DR CEDENO AT BEDSIDE
--- NOTE | 2023-01-19 21:16 | XR_ITS ---
PROCEDURE INFORMATION: Exam: XR Right Elbow Exam date and time: 01/19/2023 9:19 PM Age: 77 years old Clinical indication: Injury or trauma; Fall; Additional info: Fall, painand swelling TECHNIQUE: Imaging protocol: Radiologic exam of the right elbow. Views: 1 or 2 views. Total images: 2 COMPARISON: CR [id number] XR hand RT min 3V 07/24/2017 4:39 PM FINDINGS: Bones/joints: Osteopenia. No acute fracture, joint dislocation, or joint effusion. No significant degenerative arthropathy. No concerning bone lesions or calcifications. Soft tissues: Unremarkable soft tissues. IMPRESSION: Negative right elbow.
--- NOTE | 2023-01-19 21:16 | XR_ITS ---
PROCEDURE INFORMATION: Exam: XR Right Humerus Exam date and time: 01/19/2023 9:19 PM Age: 77 years old Clinical indication: Injury or trauma; Fall; Additional info: Fall, painand swelling TECHNIQUE: Imaging protocol: Radiologic exam of the right humerus. Views: 2 or more views. Total images: 2 COMPARISON: CR XR CHEST PORTABLE 05/21/2021 7:48 AM FINDINGS: Bones/joints: Osteopenia. Acute comminuted and impacted fracture of the humeral head and neck as described in detail on separate shoulder radiograph. No additional fracture deformities. Soft tissues: Soft tissue swelling of the shoulder. IMPRESSION: 1. Acute comminuted and impacted fracture of the humeral head and neck as previously described. 2. No additional acute osseous abnormalities.
--- NOTE | 2023-01-19 21:16 | XR_ITS ---
PROCEDURE INFORMATION: Exam: XR Right Shoulder Exam date and time: 01/19/2023 9:19 PM Age: 77 years old Clinical indication: Injury or trauma; Fall; Additional info: Fall, painand swelling TECHNIQUE: Imaging protocol: Radiologic exam of the right shoulder. Views: 2 or more views. Total images: 2 COMPARISON: CR XR CHEST PORTABLE 05/21/2021 7:48 AM FINDINGS: Bones/joints: Osteopenia. Acute comminuted and impacted fracture of the humeral head and surgical neck. Partial avulsion of the greater tuberosity. No joint dislocation. Joint spaces are appropriate for age. Subacromial distance is maintained. Lungs: Calcified right pulmonary granuloma. Right lung is otherwise clear. Soft tissues: Soft tissue swelling encompassing the shoulder. IMPRESSION: 1. Acute comminuted and impacted fracture of the humeral head and surgical neck with partial avulsion of the greater tuberosity. 2. No joint dislocation.
--- NOTE | 2023-01-19 21:20 | HMH.EDGENADL ---
Discharge Plan Disposition Patient Disposition: Home, Self-Care Prescriptions Prescriptions: No Action famotidine 20 mg tablet 20 mg PO BID aspirin 81 MG tablet,delayed release (DR/EC) 81 mg PO DAILY donepezil 10 MG tablet 20 mg PO HS memantine 10 MG tablet 10 mg PO BID primidone 50 MG tablet 50 mg PO BID carvedilol 12.5 MG tablet 18.75 mg PO BID citalopram 10 MG tablet 10 mg PO DAILY olanzapine 5 MG tablet 5 mg PO HS lisinopril 10 MG tablet 10 mg PO DAILY Referrals Follow up/Referrals: Don Conde MD [Primary Care Provider] - See instructions Ruslan Hoffmann JR, MD [Physician] - See instructions (greater tuberosity fx right humerus) Clinical Impressions Clinical Impression: Acute pain of right shoulder Closed fracture of greater tuberosity of right humerus Qualifiers: Encounter type: initial encounter Fracture alignment: displaced Qualified Code(s): S42.251A - Displaced fracture of greater tuberosity of right humerus, initial encounter for closed fracture Discharge ED Provider: Paul Crespo General Adult HPI General Chief complaint: Extremity Injury, Upper Stated complaint: AO08/04 fall RT arm pain Time Seen by Provider: 01/19/23 20:50 Mode of Arrival: Wheelchair Limitations: No Limitations Description of Symptoms (Recalled from ER Triage Doc. by RN): DAUGHTER REPORTS ATTEMPTING TO PIVOT PT, BOTH DAUGHTER AND PT FELL TOGETHER. DENIES LOC, PT REPORTS RIGHT SHOULDER PAIN, WITH DECREASED ROM. PT WITH DEMENTIA History of Present Illness HPI narrative: This is a 77-year-old female with history of hypertension, dementia presenting with right shoulder pain. Patient fell out of her wheelchair just prior to arrival. Landed directly on her right shoulder. Did not strike her head, no loss of conscious. Complaining of right shoulder pain since. No other trauma was sustained. Acting like herself otherwise. Related Data Home Medications Medication Instructions Recorded Confirmed aspirin 81 mg tablet,delayed 81 mg PO DAILY HEART HEALTH 07/24/17 05/21/21 release donepezil 10 mg tablet 20 mg PO HS mood 10/21/17 05/21/21 memantine 10 mg tablet 10 mg PO BID MEMORY 10/21/17 05/21/21 famotidine 20 mg tablet 20 mg PO BID GERD 07/17/19 05/21/21 carvedilol 12.5 mg tablet 18.75 mg PO BID High blood pressure 05/21/21 05/21/21 citalopram 10 mg tablet 10 mg PO DAILY . 05/21/21 05/21/21 lisinopril 10 mg tablet 10 mg PO DAILY High blood pressure 05/21/21 05/21/21 olanzapine 5 mg tablet 5 mg PO HS mood 05/21/21 05/21/21 primidone 50 mg tablet 50 mg PO BID . 05/21/21 05/21/21 Allergies Allergy/AdvReac Type Severity Reaction Status Date / Time propoxyphene [From DARVON] Allergy Unknown Verified 07/17/19 10:01 Sulfa (Sulfonamide Allergy Unknown Verified 07/17/19 10:01 Antibiotics) [SULFA (SULFONAMIDE ANTIBIOTICS)] [facility] Disclaimer: The information contained in this section may have been updated after the patient was seen, as this information can be updated by other users. Social History Smoking Status: Never smoker alcohol intake: never substance use type: denies use current occupational status: retired Travel in the last 8 weeks: None household members: children housing: house caffeine: Yes ROS Obtained: Yes All systems reviewed & no additional complaints except as documented Physical Exam General General appearance: alert, in no apparent distress and other ( ) Head Head exam: atraumatic and normocephalic Eye Eye exam: Present normal appearance, PERRL and EOMI ENT ENT exam: Present mucous membranes moist Neck Neck exam: Present normal inspection, full ROM and trachea midline; Absent tenderness Respiratory Respiratory exam: Absent respiratory distress, wheezes, stridor, accessory muscle use or prolonged expiratory phase Cardiovascular Cardiovascular exam: Present regular rate and normal rhythm Abdominal
--- NOTE | 2023-01-19 21:22 | PC.NURSE ---
PT TO XR
--- NOTE | 2023-01-19 21:36 | PC.NURSE ---
patient back in room at this time.
[2023-01-19 22:14] VITALS: BP 134/78; PULSE 81; RESP 17; TEMP 36.7; O2SAT 96
== END 2023-01-19 22:15 | disposition home or self-care (01) ==
PROVIDERS: Emergency Provider Emergency Medicine; PCP Internal Medicine Adolescent Medicine
DX: S42.251A Displaced fracture of greater tuberosity of right humerus, initial encounter for closed fracture (principal); F03.90 Unspecified dementia, unspecified severity, without behavioral disturbance, psychotic disturbance, mood disturbance, and anxiety; I10 Essential (primary) hypertension; W05.0XXA Fall from non-moving wheelchair, initial encounter
CPT/HCPCS: 73030; 73060; 73070; 99284

== ENCOUNTER → 2023-02-27 14:40 | Outpatient (CLI) | payer MEDICARE, OTHER, SELFPAY ==
--- NOTE | 2023-02-27 14:47 | XR_ITS ---
FINAL REPORT CLINICAL HISTORY: humerus fracture, fall FINDINGS: 2 views of the right humerus were obtained. There is a comminuted fracture of the humeral neck and greater tuberosity that appears subacute with callus formation. The joint spaces appear intact. There is no acute soft tissue abnormality. IMPRESSION: Subacute comminuted fracture of the humeral neck and greater tuberosity with callus formation. Reviewed, Interpreted and Dictated by Dk Cantor III, MD Transcribed by Blaise Newby Authenticated and . [facility]
== END ==
PROVIDERS: PCP Internal Medicine Adolescent Medicine; Visit Provider Orthopaedic Surgery
DX: S42.251A Displaced fracture of greater tuberosity of right humerus, initial encounter for closed fracture (principal)
CPT/HCPCS: 73060

== ENCOUNTER 2023-03-23 18:05 | Emergency (ER) | payer MEDICARE, OTHER, SELFPAY ==
[2023-03-23 18:10] VITALS: BP 180/70; PULSE 70; RESP 18; TEMP 36.9; O2SAT 95; BMI 15.4
--- NOTE | 2023-03-23 18:26 | XR_ITS ---
PROCEDURE INFORMATION: Exam: XR Right Humerus Exam date and time: 03/23/2023 6:27 PM Age: 78 years old Clinical indication: Injury or trauma; Fall; Other: Fracture; Additional info: Fall, fall with FX 1 month ago TECHNIQUE: Imaging protocol: Radiologic exam of the right humerus. Views: 2 or more views. COMPARISON: CR XR HUMERUS RT 02/27/2023 2:54 PM FINDINGS: Bones/joints: Healing fracture in the anatomic neck has developed additional callus and sclerotic cortical thickening and remains in near anatomic alignment. No acute fractures, dislocations, or focal bone lesions. Oblique fracture in the distal right clavicle may be acute or subacute and is in near anatomic alignment. Soft tissues: No soft tissue abnormalities or radiopaque foreign bodies. No soft tissue gas. IMPRESSION: 1. A fracture in the distal right clavicle may be acute or subacute and is in near anatomic alignment. 2. Healing subacute fracture of the surgical neck of the right humerus is in near anatomic alignment and has developed additional sclerotic callus and bone remodeling. 3. No other acute fractures in the right humerus.
--- NOTE | 2023-03-23 18:38 | EXP.UTC ---
Discharge Plan Disposition Patient Disposition: Home, Self-Care Condition: Good Prescriptions Prescriptions: No Action famotidine 20 mg tablet 20 mg PO BID aspirin 81 MG tablet,delayed release (DR/EC) 81 mg PO DAILY donepezil 10 MG tablet 20 mg PO HS memantine 10 MG tablet 10 mg PO BID primidone 50 MG tablet 50 mg PO BID carvedilol 12.5 MG tablet 18.75 mg PO BID citalopram 10 MG tablet 10 mg PO DAILY olanzapine 5 MG tablet 5 mg PO HS lisinopril 10 MG tablet 10 mg PO DAILY Referrals Follow up/Referrals: Don Conde MD [Primary Care Provider] - See instructions Activity Restrictions/Add. Instructions Additional Instructions/Restrictions: Call Dr. Harrington's office on Sunday to let him know what happened and have him review her x-rays. GO TO THE ER FOR ANY WORSENING SYMPTOMS Clinical Impressions Clinical Impression: Pain in right shoulder Instructions Patient Instructions: DI for Shoulder Pain Discharge ED Provider: Jonathon Bray [facility] General Stated complaint: AO fall 03/23, right shoulder pain Mode of Arrival: Ambulatory Source of Information: Patient Limitations: No Limitations Time Seen by Provider: 03/23/23 18:38 Description of Symptoms (Recalled from Triage Doc. by RN): Pt has previously broke ball off humerus. Pt was walkign with daughter and fell on right shoulder. Pt denies any pain, but daughter brought her in to get it checked out. HEENT Symptoms (Recalled from RN notes): No Resp Symptoms (Recalled from RN notes): No Skin Symptoms (Recalled from RN notes): No MS Symptoms (Recalled from RN notes): Yes Functional Status (Recalled from RN notes): n/a History of Present Illness Provider Complaint: Her daughter brings her in after she bumped her shoulder on something today. She denies any pain. She has a history of dementia. She has a history of having a broken right humerus that occurred around 1 month ago. She is being followed by Dr. Harrington for this fracture. Related Data Home Medications Medication Instructions Recorded Confirmed aspirin 81 mg tablet,delayed 81 mg PO DAILY HEART HEALTH 07/24/17 03/08/23 release donepezil 10 mg tablet 20 mg PO HS mood 10/21/17 03/08/23 memantine 10 mg tablet 10 mg PO BID MEMORY 10/21/17 03/08/23 famotidine 20 mg tablet 20 mg PO BID GERD 07/17/19 03/08/23 carvedilol 12.5 mg tablet 18.75 mg PO BID High blood pressure 05/21/21 03/08/23 citalopram 10 mg tablet 10 mg PO DAILY . 05/21/21 03/08/23 lisinopril 10 mg tablet 10 mg PO DAILY High blood pressure 05/21/21 03/08/23 olanzapine 5 mg tablet 5 mg PO HS mood 05/21/21 03/08/23 primidone 50 mg tablet 50 mg PO BID . 05/21/21 03/08/23 Allergies Allergy/AdvReac Type Severity Reaction Status Date / Time propoxyphene [From DARVON] Allergy Unknown Verified 03/23/23 18:25 Sulfa (Sulfonamide Allergy Unknown Verified 03/23/23 18:25 Antibiotics) [SULFA (SULFONAMIDE ANTIBIOTICS)] Worker's Comp Is this a Worker's Comp case?: No [facility] Disclaimer: The information contained in this section may have been updated after the patient was seen, as this information can be updated by other users. Social History Smoking Status: Never smoker alcohol intake: never substance use type: denies use current occupational status: retired Travel in the last 8 weeks: None household members: children housing: house caffeine: Yes ROS Obtained: Yes All systems reviewed & no additional complaints except as documented Constitutional Constitutional: Denies chills and Denies fever(s) Eyes Eyes: Denies eye discharge ENT Ears, Nose, Mouth, and Throat: Denies dizziness, Denies otalgia and Denies sore throat Cardiovascular Cardiovascular: Denies chest pain Respiratory Respiratory: Denies shortness of breath, Denies chest congestion, Denies cough, Denies stridor and Denies w
[2023-03-23 19:15] VITALS: BP 183/70; PULSE 70; RESP 18; TEMP 36.8; O2SAT 95
== END 2023-03-23 19:15 | disposition home or self-care (01) ==
PROVIDERS: Emergency Provider Nurse Practitioner Family; PCP Internal Medicine Adolescent Medicine
DX: M25.511 Pain in right shoulder (principal); W19.XXXA Unspecified fall, initial encounter
CPT/HCPCS: 73060; 99212; 99213; G0463

== ENCOUNTER 2023-03-26 10:47 | Emergency (ER) | payer MEDICARE, OTHER, SELFPAY ==
--- NOTE | 2023-03-26 10:54 | XR_ITS ---
FINAL REPORT CLINICAL HISTORY: Right upper leg pain after fall COMPARISON: None FINDINGS: 3 views of the right humerus were obtained. There is no acute fracture or dislocation. There is mild degenerative change in the knee. There are mild vascular calcifications. IMPRESSION: No acute abnormality identified. Reviewed, Interpreted and Dictated by Dk Cantor III, MD Transcribed by Kiersten Gao Authenticated and [facility]
--- NOTE | 2023-03-26 10:54 | XR_ITS ---
FINAL REPORT CLINICAL HISTORY: Right hip pain after fall COMPARISON: None FINDINGS: RIGHT HIP Two views of the right hip demonstrate no acute fracture or dislocation. There is mild degenerative change. The visualized bony structures are well aligned. There is a soft tissue calcification lateral to the right iliac bone. IMPRESSION: No acute bony abnormality. Reviewed, Interpreted and Dictated by Dk Cantor III, MD Transcribed by Kiersten Gao Authenticated and [facility]
[2023-03-26 11:05] VITALS: BP 116/59; PULSE 74; RESP 20; TEMP 36.8; O2SAT 95; BMI 18.5
--- NOTE | 2023-03-26 11:17 | EXP.UTC ---
Discharge Plan Disposition Patient Disposition: Home, Self-Care Condition: Good Prescriptions Prescriptions: No Action famotidine 20 mg tablet 20 mg PO BID aspirin 81 MG tablet,delayed release (DR/EC) 81 mg PO DAILY donepezil 10 MG tablet 20 mg PO HS memantine 10 MG tablet 10 mg PO BID primidone 50 MG tablet 50 mg PO BID carvedilol 12.5 MG tablet 18.75 mg PO BID citalopram 10 MG tablet 10 mg PO DAILY olanzapine 5 MG tablet 5 mg PO HS lisinopril 10 MG tablet 10 mg PO DAILY Referrals Follow up/Referrals: Don Conde MD [Primary Care Provider] - See instructions Activity Restrictions/Add. Instructions Additional Instructions/Restrictions: Hold to patient as she is walking Follow up with your Family Doctor if symptoms persist may need MRI Return if needed Straight to ER if any life threatening symptoms Clinical Impressions Clinical Impression: Fall Qualifiers: Encounter type: initial encounter Qualified Code(s): W19.XXXA - Unspecified fall, initial encounter Instructions Patient Instructions: DI for Contusion Discharge ED Provider: Janeth Ramirez [facility] HPI General Stated complaint: AO10/@home, pain in Rt leg Mode of Arrival: Ambulatory Source of Information: Patient Limitations: No Limitations Time Seen by Provider: 03/26/23 11:10 Description of Symptoms (Recalled from Triage Doc. by RN): DAUGHTER REPORTS PATIENT FELL ON SUNDAY AND HAS BEEN INTERMITTENLY C/O RIGHT UPPER LEG PAIN HEENT Symptoms (Recalled from RN notes): No Resp Symptoms (Recalled from RN notes): No Skin Symptoms (Recalled from RN notes): No MS Symptoms (Recalled from RN notes): Yes Functional Status (Recalled from RN notes): WNL History of Present Illness Provider Complaint: Daughter states that she has dementia and falls alot States that on Sunday she fell and only complained with her arm hurting so she brought her in and got it checked but since then she has complained on and off with upper leg pain and sometimes walks with a limp States that she was worried she may have hurt her hip or upper leg and wanted to get it checked before getting her up and walking her around today States that she will still cross her legs but acts like it hurts at times when they get her up Related Data Home Medications Medication Instructions Recorded Confirmed aspirin 81 mg tablet,delayed 81 mg PO DAILY HEART HEALTH 07/24/17 03/08/23 release donepezil 10 mg tablet 20 mg PO HS mood 10/21/17 03/08/23 memantine 10 mg tablet 10 mg PO BID MEMORY 10/21/17 03/08/23 famotidine 20 mg tablet 20 mg PO BID GERD 07/17/19 03/08/23 carvedilol 12.5 mg tablet 18.75 mg PO BID High blood pressure 05/21/21 03/08/23 citalopram 10 mg tablet 10 mg PO DAILY . 05/21/21 03/08/23 lisinopril 10 mg tablet 10 mg PO DAILY High blood pressure 05/21/21 03/08/23 olanzapine 5 mg tablet 5 mg PO HS mood 05/21/21 03/08/23 primidone 50 mg tablet 50 mg PO BID . 05/21/21 03/08/23 Allergies Allergy/AdvReac Type Severity Reaction Status Date / Time propoxyphene [From DARVON] Allergy Unknown Verified 03/23/23 18:25 Sulfa (Sulfonamide Allergy Unknown Verified 03/23/23 18:25 Antibiotics) [SULFA (SULFONAMIDE ANTIBIOTICS)] Worker's Comp Is this a Worker's Comp case?: No [facility] Disclaimer: The information contained in this section may have been updated after the patient was seen, as this information can be updated by other users. Social History Smoking Status: Never smoker alcohol intake: never substance use type: denies use current occupational status: retired Travel in the last 8 weeks: None household members: children housing: house caffeine: Yes ROS Obtained: Yes All systems reviewed & no additional complaints except as documented and Yes Systems reviewed as appropriate & no additional complaints except as documented Cardiovasc
[2023-03-26 12:46] VITALS: BP 116/59; PULSE 74; RESP 20; TEMP 36.8; O2SAT 95
== END 2023-03-26 12:51 | disposition home or self-care (01) ==
PROVIDERS: Emergency Provider Nurse Practitioner; PCP Internal Medicine Adolescent Medicine
DX: M79.604 Pain in right leg (principal); W19.XXXA Unspecified fall, initial encounter
CPT/HCPCS: 73502; 73552; 99212; 99213; G0463